=== PATIENT | male | born 1950 | race Caucasian/White ===

== ENCOUNTER 2022-05-20 22:37 | Inpatient (IN) | payer MEDICARE, BC ==
[2022-05-20] MEDS ORDERED: Amiodarone 150 MG/3 ML VIAL ONE (22:41)
[2022-05-20 23:47] LABS: Hemoglobin 13.4 g/dL (14.0-18.0); Mean Corpuscular HGB CONC 32.1 g/dL (32.0-36.0); Mean Corpuscular Hemoglobin 30.1 pg (27.0-31.0); Mean Corpuscular Volume 93.9 fl (78.0-98.0); RBC Distribution Width 11.2 % (11.5-14.5); Red Blood Cell (RBC) Count 4.43 mill/uL (4.70-6.10)
[2022-05-20 23:58] LABS: ALT (SGPT) Less than 7 U/L (8-55); AST (SGOT) 12 U/L (5-34); Albumin 3.6 g/dL (3.4-4.8); Alkaline Phosphatase 69 U/L (40-110); Anion Gap 12 mmol/L (10-20); BUN (Urea Nitrogen) 17 mg/dL (8.4-25.7); Bilirubin, Total 1.2 mg/dL (0.2-1.2); Calc. Creatinine Clearance 0 mL/min (70-130); Calcium 8.5 mg/dL (7.8-10.44); Carbon Dioxide 27 mmol/L (23-31); Chloride 103 mmol/L (98-107); Estimated GFR 92; Glucose 96 mg/dL (83-110); Magnesium 1.7 mg/dL (1.6-2.6); Potassium 3.7 mmol/L (3.5-5.1); Protein, Total 6.6 g/dL (5.8-8.1); Sodium 138 mmol/L (136-145)
[2022-05-21 00:24] LABS: #Eosinphils 0.1 thou/uL (0.0-0.7); #Lymphocytes 1.4 thou/uL (1.20-3.40); #Monocytes 0.7 thou/uL (0.11-0.59); #Neutrophils 4.9 thou/uL (1.40-6.50); %Basophils 0.4 % (0.0-1.0); %Eosinophils 1.5 % (0.0-10.0); %Lymphocytes 19.4 % (21.0-51.0); %Monocytes 9.5 % (0.0-10.0); %Neutrophils 69.2 % (42.0-75.0); Platelet Count 108 10x3/uL (130-400)
[2022-05-21 00:25] LABS: Platelet Morphology Comment Appears Decreased; RBC Morphology Normal
[2022-05-21] MEDS ORDERED: Fentanyl 100 MCG/2 ML VIAL ONE (01:08)
[2022-05-21] MEDS ORDERED: Aspirin Chewable 81 MG TAB ONE (01:39)
[2022-05-21] MEDS ORDERED: Magnesium 2 GM/50 ML BAG (IN WATER) ONE (01:40)
[2022-05-21 01:51] LABS: Phosphorus 2.6 mg/dL (2.3-4.7)
[2022-05-21] MEDS ORDERED: Acetaminophen 325 MG TAB PO PRN (02:28)
[2022-05-21] MEDS ORDERED: Ondansetron PF 4 MG/2 ML Vial IVP PRN (02:28)
[2022-05-21 04:00] LABS: SARS-CoV-2 NAA Rapid Test Not Detected (NotDetected)
[2022-05-21 07:04] LABS: #Eosinphils 0.1 thou/uL (0.0-0.7); #Lymphocytes 1.7 thou/uL (1.20-3.40); #Monocytes 0.7 thou/uL (0.11-0.59); #Neutrophils 4.9 thou/uL (1.40-6.50); %Basophils 0.3 % (0.0-1.0); %Eosinophils 1.4 % (0.0-10.0); %Lymphocytes 23.1 % (21.0-51.0); %Monocytes 9.5 % (0.0-10.0); %Neutrophils 65.8 % (42.0-75.0); Hemoglobin 13.7 g/dL (14.0-18.0); Mean Corpuscular HGB CONC 31.9 g/dL (32.0-36.0); Mean Corpuscular Hemoglobin 30.1 pg (27.0-31.0); Mean Corpuscular Volume 94.4 fl (78.0-98.0); Mean Platelet Volume 10.8 fL (7.4-10.4); Platelet Count 113 10x3/uL (130-400); RBC Distribution Width 11.3 % (11.5-14.5); Red Blood Cell (RBC) Count 4.56 mill/uL (4.70-6.10); White Blood Cell (WBC) Count 7.5 10x3/uL (4.8-10.8)
[2022-05-21 07:13] LABS: INR-International Normal Ratio 3.5; PTT 44.1 sec (22.9-36.1); Prothrombin Time 36.4 sec (12.0-14.7)
[2022-05-21 07:18] LABS: Anion Gap 12 mmol/L (10-20); BUN (Urea Nitrogen) 15 mg/dL (8.4-25.7); Calc. Creatinine Clearance 88 mL/min (70-130); Calcium 8.8 mg/dL (7.8-10.44); Carbon Dioxide 28 mmol/L (23-31); Chloride 101 mmol/L (98-107); Estimated GFR 92; Glucose 99 mg/dL (83-110); Potassium 3.6 mmol/L (3.5-5.1); Sodium 137 mmol/L (136-145)
[2022-05-21] MEDS: Amiodarone 450 MG, Admixture Fee 1 EACH in Dextrose 5% in Water 250 ML IVPB SCH ×2 (08:55→23:31)
[2022-05-21] MEDS ORDERED: Melatonin 3 MG TAB PO PRN (19:32)
[2022-05-21] MEDS: busPIRone HCl 10 MG TAB PO SCH (20:56)
[2022-05-21] MEDS: traZODone HCl 50 MG TAB PO SCH (20:57)
[2022-05-21] MEDS: Carbidopa/Levodopa 25-100 mg Tablet PO SCH (20:58)
[2022-05-21] MEDS: Gabapentin 300 MG CAP PO SCH (20:58)
[2022-05-21] MEDS: Cholecalciferol 1,000 UNITS (25 MCG) TAB PO SCH (20:59)
[2022-05-21] MEDS: Carvedilol 3.125 MG TAB PO SCH (20:59)
[2022-05-21] MEDS: Midodrine HCl 5 MG TAB PO SCH (21:00)
[2022-05-22 04:23] LABS: #Eosinphils 0.1 thou/uL (0.0-0.7); #Lymphocytes 2.2 thou/uL (1.20-3.40); #Monocytes 0.9 thou/uL (0.11-0.59); #Neutrophils 4.2 thou/uL (1.40-6.50); %Basophils 0.2 % (0.0-1.0); %Eosinophils 1.7 % (0.0-10.0); %Lymphocytes 29.9 % (21.0-51.0); %Monocytes 11.6 % (0.0-10.0); %Neutrophils 56.5 % (42.0-75.0); Hemoglobin 13.1 g/dL (14.0-18.0); Mean Corpuscular HGB CONC 32.5 g/dL (32.0-36.0); Mean Corpuscular Hemoglobin 30.6 pg (27.0-31.0); Mean Corpuscular Volume 94.1 fl (78.0-98.0); Mean Platelet Volume 11.2 fL (7.4-10.4); Platelet Count 96 10x3/uL (130-400); RBC Distribution Width 11.3 % (11.5-14.5); Red Blood Cell (RBC) Count 4.29 mill/uL (4.70-6.10); White Blood Cell (WBC) Count 7.4 10x3/uL (4.8-10.8)
[2022-05-22 04:26] LABS: INR-International Normal Ratio 3.7; PTT 48.4 sec (22.9-36.1); Prothrombin Time 38.2 sec (12.0-14.7)
[2022-05-22 04:35] LABS: Anion Gap 13 mmol/L (10-20); BUN (Urea Nitrogen) 15 mg/dL (8.4-25.7); Calc. Creatinine Clearance 90 mL/min (70-130); Calcium 8.8 mg/dL (7.8-10.44); Carbon Dioxide 26 mmol/L (23-31); Chloride 101 mmol/L (98-107); Estimated GFR 93; Glucose 85 mg/dL (83-110); Potassium 3.7 mmol/L (3.5-5.1); Sodium 136 mmol/L (136-145)
[2022-05-22] MEDS: Levothyroxine Sodium 100 MCG TAB PO SCH (05:47)
[2022-05-22] MEDS ORDERED: Amiodarone 200 MG TAB PO SCH (09:00)
[2022-05-22] MEDS: Digoxin 0.125 MG TAB PO SCH (10:21)
[2022-05-22] MEDS: Carbidopa/Levodopa 25-100 mg Tablet PO SCH ×3 (10:21→22:09)
[2022-05-22] MEDS: Amiodarone 200 MG TAB PO SCH ×2 (10:21→22:14)
[2022-05-22] MEDS: busPIRone HCl 10 MG TAB PO SCH ×2 (10:21→22:09)
[2022-05-22] MEDS: Carvedilol 3.125 MG TAB PO SCH ×2 (10:22→22:10)
[2022-05-22] MEDS: Midodrine HCl 5 MG TAB PO SCH ×3 (10:22→22:08)
[2022-05-22] MEDS: Cholecalciferol 1,000 UNITS (25 MCG) TAB PO SCH ×2 (10:22→22:08)
[2022-05-22] MEDS: Furosemide 20 MG TAB PO SCH ×2 (10:23→14:31)
[2022-05-22] MEDS ORDERED: Warfarin Sodium 2 MG TAB PO SCH (17:00)
[2022-05-22] MEDS: traZODone HCl 50 MG TAB PO SCH (22:08)
[2022-05-22] MEDS: Gabapentin 300 MG CAP PO SCH (22:10)
[2022-05-23] MEDS: Amiodarone 450 MG, Admixture Fee 1 EACH in Dextrose 5% in Water 250 ML IVPB SCH (01:58)
[2022-05-23 04:28] LABS: #Eosinphils 0.2 thou/uL (0.0-0.7); #Lymphocytes 2.1 thou/uL (1.20-3.40); #Monocytes 0.8 thou/uL (0.11-0.59); #Neutrophils 3.5 thou/uL (1.40-6.50); %Basophils 0.5 % (0.0-1.0); %Eosinophils 2.5 % (0.0-10.0); %Lymphocytes 31.8 % (21.0-51.0); %Monocytes 12.3 % (0.0-10.0); %Neutrophils 52.9 % (42.0-75.0); Hemoglobin 12.9 g/dL (14.0-18.0); Mean Corpuscular HGB CONC 32.6 g/dL (32.0-36.0); Mean Corpuscular Hemoglobin 30.8 pg (27.0-31.0); Mean Corpuscular Volume 94.6 fl (78.0-98.0); Mean Platelet Volume 10.8 fL (7.4-10.4); Platelet Count 98 10x3/uL (130-400); RBC Distribution Width 11.3 % (11.5-14.5); Red Blood Cell (RBC) Count 4.18 mill/uL (4.70-6.10); White Blood Cell (WBC) Count 6.6 10x3/uL (4.8-10.8)
[2022-05-23 04:31] LABS: INR-International Normal Ratio 3.4; PTT 53.9 sec (22.9-36.1)
[2022-05-23 04:33] LABS: Anion Gap 11 mmol/L (10-20); BUN (Urea Nitrogen) 16 mg/dL (8.4-25.7); Calc. Creatinine Clearance 96 mL/min (70-130); Calcium 8.6 mg/dL (7.8-10.44); Carbon Dioxide 27 mmol/L (23-31); Chloride 103 mmol/L (98-107); Estimated GFR 94; Glucose 85 mg/dL (83-110); Potassium 3.8 mmol/L (3.5-5.1); Sodium 137 mmol/L (136-145)
[2022-05-23] MEDS: Levothyroxine Sodium 100 MCG TAB PO SCH (05:42)
[2022-05-23] MEDS: Digoxin 0.125 MG TAB PO SCH (09:33)
[2022-05-23] MEDS: Carvedilol 3.125 MG TAB PO SCH ×2 (09:34→21:35)
[2022-05-23] MEDS: Midodrine HCl 5 MG TAB PO SCH ×3 (09:34→21:34)
[2022-05-23] MEDS: Amiodarone 200 MG TAB PO SCH ×2 (09:34→21:36)
[2022-05-23] MEDS: Carbidopa/Levodopa 25-100 mg Tablet PO SCH ×3 (09:34→21:34)
[2022-05-23] MEDS: Furosemide 20 MG TAB PO SCH ×2 (09:34→16:18)
[2022-05-23] MEDS: busPIRone HCl 10 MG TAB PO SCH ×2 (09:34→21:35)
[2022-05-23] MEDS: Cholecalciferol 1,000 UNITS (25 MCG) TAB PO SCH ×2 (09:35→21:35)
[2022-05-23] MEDS ORDERED: Warfarin Sodium 2 MG TAB PO SCH (17:00)
[2022-05-23] MEDS: Gabapentin 300 MG CAP PO SCH (21:34)
[2022-05-23] MEDS: traZODone HCl 50 MG TAB PO SCH (21:36)
[2022-05-24 04:39] LABS: INR-International Normal Ratio 2.8; Prothrombin Time 30.9 sec (12.0-14.7)
[2022-05-24] MEDS: Levothyroxine Sodium 100 MCG TAB PO SCH (06:29)
[2022-05-24] MEDS: Amiodarone 450 MG, Admixture Fee 1 EACH in Dextrose 5% in Water 250 ML IVPB SCH (06:29)
[2022-05-24] MEDS: Carvedilol 3.125 MG TAB PO SCH ×2 (09:34→20:46)
[2022-05-24] MEDS: Digoxin 0.125 MG TAB PO SCH (09:34)
[2022-05-24] MEDS: busPIRone HCl 10 MG TAB PO SCH ×2 (09:34→20:47)
[2022-05-24] MEDS: Cholecalciferol 1,000 UNITS (25 MCG) TAB PO SCH ×2 (09:34→20:47)
[2022-05-24] MEDS: Midodrine HCl 5 MG TAB PO SCH ×3 (09:34→20:47)
[2022-05-24] MEDS: Carbidopa/Levodopa 25-100 mg Tablet PO SCH ×3 (09:35→20:47)
[2022-05-24] MEDS: Amiodarone 200 MG TAB PO SCH ×2 (09:35→20:47)
[2022-05-24] MEDS: Furosemide 20 MG TAB PO SCH ×2 (09:35→14:42)
[2022-05-24] MEDS: traZODone HCl 50 MG TAB PO SCH (20:46)
[2022-05-24] MEDS: Gabapentin 300 MG CAP PO SCH (20:48)
[2022-05-25] MEDS: Levothyroxine Sodium 100 MCG TAB PO SCH (05:44)
[2022-05-25 08:20] LABS: INR-International Normal Ratio 2.1; Prothrombin Time 24.6 sec (12.0-14.7)
[2022-05-25] MEDS: busPIRone HCl 10 MG TAB PO SCH ×2 (09:55→21:56)
[2022-05-25] MEDS: Carvedilol 3.125 MG TAB PO SCH ×2 (09:56→21:57)
[2022-05-25] MEDS: Midodrine HCl 5 MG TAB PO SCH ×3 (09:56→21:58)
[2022-05-25] MEDS: Cholecalciferol 1,000 UNITS (25 MCG) TAB PO SCH ×2 (09:56→21:57)
[2022-05-25] MEDS: Amiodarone 200 MG TAB PO SCH ×2 (09:56→21:57)
[2022-05-25] MEDS: Digoxin 0.125 MG TAB PO SCH (09:56)
[2022-05-25] MEDS: Carbidopa/Levodopa 25-100 mg Tablet PO SCH ×3 (09:56→21:55)
[2022-05-25] MEDS: Furosemide 20 MG TAB PO SCH ×2 (09:58→15:33)
[2022-05-25] MEDS ORDERED: Warfarin Sodium 2 MG TAB PO SCH (17:00)
[2022-05-25] MEDS: traZODone HCl 50 MG TAB PO SCH (21:54)
[2022-05-25] MEDS: Gabapentin 300 MG CAP PO SCH (21:56)
[2022-05-26 04:17] LABS: INR-International Normal Ratio 2.1; PTT 38.2 sec (22.9-36.1); Prothrombin Time 24.9 sec (12.0-14.7)
[2022-05-26] MEDS: Levothyroxine Sodium 100 MCG TAB PO SCH (05:19)
[2022-05-26] MEDS: Carbidopa/Levodopa 25-100 mg Tablet PO SCH ×3 (09:34→22:22)
[2022-05-26] MEDS: Digoxin 0.125 MG TAB PO SCH (09:35)
[2022-05-26] MEDS: Amiodarone 200 MG TAB PO SCH ×2 (09:35→22:22)
[2022-05-26] MEDS: Cholecalciferol 1,000 UNITS (25 MCG) TAB PO SCH ×2 (09:36→22:22)
[2022-05-26] MEDS: Furosemide 20 MG TAB PO SCH ×2 (09:36→17:25)
[2022-05-26] MEDS: busPIRone HCl 10 MG TAB PO SCH ×2 (09:36→22:23)
[2022-05-26] MEDS: Carvedilol 3.125 MG TAB PO SCH ×2 (09:36→22:23)
[2022-05-26] MEDS: Midodrine HCl 5 MG TAB PO SCH ×3 (09:36→22:22)
[2022-05-26] MEDS: Gabapentin 300 MG CAP PO SCH (22:21)
[2022-05-26] MEDS: traZODone HCl 50 MG TAB PO SCH (22:22)
[2022-05-27 04:28] LABS: PTT 35.6 sec (22.9-36.1)
[2022-05-27] MEDS: Levothyroxine Sodium 100 MCG TAB PO SCH (06:40)
[2022-05-27] MEDS: busPIRone HCl 10 MG TAB PO SCH ×2 (09:43→21:55)
[2022-05-27] MEDS: Carbidopa/Levodopa 25-100 mg Tablet PO SCH ×3 (09:44→21:56)
[2022-05-27] MEDS: Amiodarone 200 MG TAB PO SCH ×2 (09:44→21:55)
[2022-05-27] MEDS: Digoxin 0.125 MG TAB PO SCH (09:45)
[2022-05-27] MEDS: Midodrine HCl 5 MG TAB PO SCH ×3 (09:45→21:58)
[2022-05-27] MEDS: Cholecalciferol 1,000 UNITS (25 MCG) TAB PO SCH ×2 (09:46→21:57)
[2022-05-27] MEDS: Carvedilol 3.125 MG TAB PO SCH ×2 (09:46→21:59)
[2022-05-27] MEDS: Furosemide 20 MG TAB PO SCH ×2 (09:46→14:35)
[2022-05-27] MEDS: Gabapentin 300 MG CAP PO SCH (21:57)
[2022-05-27] MEDS: traZODone HCl 50 MG TAB PO SCH (21:59)
[2022-05-28 03:59] LABS: #Eosinphils 0.1 thou/uL (0.0-0.7); #Lymphocytes 2.5 thou/uL (1.20-3.40); #Monocytes 0.8 thou/uL (0.11-0.59); %Basophils 0.5 % (0.0-1.0); %Monocytes 10.9 % (0.0-10.0); %Neutrophils 53.7 % (42.0-75.0); Hemoglobin 13.7 g/dL (14.0-18.0); Mean Corpuscular HGB CONC 31.9 g/dL (32.0-36.0); Mean Corpuscular Hemoglobin 30.3 pg (27.0-31.0); Mean Corpuscular Volume 94.9 fl (78.0-98.0); Mean Platelet Volume 11.4 fL (7.4-10.4); Platelet Count 106 10x3/uL (130-400); RBC Distribution Width 11.3 % (11.5-14.5); Red Blood Cell (RBC) Count 4.51 mill/uL (4.70-6.10); White Blood Cell (WBC) Count 7.5 10x3/uL (4.8-10.8)
[2022-05-28 04:09] LABS: INR-International Normal Ratio 2.5; PTT 85.8 sec (22.9-36.1); Prothrombin Time 28.2 sec (12.0-14.7)
[2022-05-28] MEDS: Levothyroxine Sodium 100 MCG TAB PO SCH (06:48)
[2022-05-28] MEDS: Carbidopa/Levodopa 25-100 mg Tablet PO SCH ×3 (08:57→21:06)
[2022-05-28] MEDS: Digoxin 0.125 MG TAB PO SCH (08:57)
[2022-05-28] MEDS: Midodrine HCl 5 MG TAB PO SCH ×3 (08:57→21:05)
[2022-05-28] MEDS: Amiodarone 200 MG TAB PO SCH ×2 (08:58→21:05)
[2022-05-28] MEDS: busPIRone HCl 10 MG TAB PO SCH ×2 (08:58→21:04)
[2022-05-28] MEDS: Carvedilol 3.125 MG TAB PO SCH ×2 (08:59→21:07)
[2022-05-28] MEDS: Cholecalciferol 1,000 UNITS (25 MCG) TAB PO SCH ×2 (08:59→21:02)
[2022-05-28] MEDS: Loratadine 10 MG TAB PO SCH (08:59)
[2022-05-28] MEDS: Furosemide 20 MG TAB PO SCH ×2 (08:59→16:04)
[2022-05-28] MEDS ORDERED: Phytonadione 5 MG TAB PO SCH (19:30)
[2022-05-28] MEDS: Gabapentin 300 MG CAP PO SCH (21:03)
[2022-05-28] MEDS: traZODone HCl 50 MG TAB PO SCH (21:06)
[2022-05-29 05:09] LABS: INR-International Normal Ratio 1.6; Prothrombin Time 19.6 sec (12.0-14.7)
[2022-05-29 05:10] LABS: PTT 43.7 sec (22.9-36.1)
[2022-05-29] MEDS: Levothyroxine Sodium 100 MCG TAB PO SCH (06:21)
[2022-05-29] MEDS: Amiodarone 200 MG TAB PO SCH ×2 (11:17→21:32)
[2022-05-29] MEDS: busPIRone HCl 10 MG TAB PO SCH ×2 (11:18→21:35)
[2022-05-29] MEDS: Carbidopa/Levodopa 25-100 mg Tablet PO SCH ×3 (11:19→21:34)
[2022-05-29] MEDS: Cholecalciferol 1,000 UNITS (25 MCG) TAB PO SCH ×2 (11:19→21:34)
[2022-05-29] MEDS: Midodrine HCl 5 MG TAB PO SCH ×3 (11:20→21:34)
[2022-05-29] MEDS: Furosemide 20 MG TAB PO SCH ×2 (11:21→15:02)
[2022-05-29] MEDS: Loratadine 10 MG TAB PO SCH (11:22)
[2022-05-29] MEDS: Digoxin 0.125 MG TAB PO SCH (11:22)
[2022-05-29] MEDS: Carvedilol 3.125 MG TAB PO SCH ×2 (12:36→21:37)
[2022-05-29] MEDS ORDERED: busPIRone HCl 10 MG TAB PO SCH (15:45)
[2022-05-29] MEDS: traZODone HCl 50 MG TAB PO SCH (21:33)
[2022-05-29] MEDS: Gabapentin 300 MG CAP PO SCH (21:33)
[2022-05-30 05:02] LABS: #Eosinphils 0.2 thou/uL (0.0-0.7); #Lymphocytes 2.7 thou/uL (1.20-3.40); #Monocytes 0.7 thou/uL (0.11-0.59); #Neutrophils 3.6 thou/uL (1.40-6.50); %Basophils 0.6 % (0.0-1.0); %Eosinophils 2.3 % (0.0-10.0); %Lymphocytes 37.3 % (21.0-51.0); %Monocytes 9.9 % (0.0-10.0); %Neutrophils 49.9 % (42.0-75.0); Hemoglobin 13.7 g/dL (14.0-18.0); Mean Corpuscular HGB CONC 32.5 g/dL (32.0-36.0); Mean Corpuscular Hemoglobin 30.4 pg (27.0-31.0); Mean Corpuscular Volume 93.8 fl (78.0-98.0); Mean Platelet Volume 11.7 fL (7.4-10.4); Platelet Count 102 10x3/uL (130-400); RBC Distribution Width 11.3 % (11.5-14.5); White Blood Cell (WBC) Count 7.1 10x3/uL (4.8-10.8)
[2022-05-30 05:13] LABS: INR-International Normal Ratio 1.3; PTT 33.7 sec (22.9-36.1); Prothrombin Time 16.6 sec (12.0-14.7)
[2022-05-30 05:20] LABS: Anion Gap 13 mmol/L (10-20); BUN (Urea Nitrogen) 40 mg/dL (8.4-25.7); Calc. Creatinine Clearance 83 mL/min (70-130); Calcium 9.4 mg/dL (7.8-10.44); Carbon Dioxide 30 mmol/L (23-31); Chloride 98 mmol/L (98-107); Estimated GFR 90; Glucose 90 mg/dL (83-110); Potassium 3.7 mmol/L (3.5-5.1); Sodium 137 mmol/L (136-145)
[2022-05-30] MEDS: Levothyroxine Sodium 100 MCG TAB PO SCH (06:46)
[2022-05-30] MEDS: Carvedilol 3.125 MG TAB PO SCH ×2 (09:57→21:04)
[2022-05-30] MEDS: Digoxin 0.125 MG TAB PO SCH (10:31)
[2022-05-30] MEDS: Cholecalciferol 1,000 UNITS (25 MCG) TAB PO SCH ×2 (10:32→21:04)
[2022-05-30] MEDS: Amiodarone 200 MG TAB PO SCH ×2 (10:32→21:04)
[2022-05-30] MEDS: busPIRone HCl 10 MG TAB PO SCH ×2 (10:33→17:07)
[2022-05-30] MEDS: Furosemide 20 MG TAB PO SCH ×2 (10:35→14:07)
[2022-05-30] MEDS: Loratadine 10 MG TAB PO SCH (10:35)
[2022-05-30] MEDS: Carbidopa/Levodopa 25-100 mg Tablet PO SCH ×3 (10:38→21:03)
[2022-05-30] MEDS: Midodrine HCl 5 MG TAB PO SCH ×4 (10:39→21:05)
[2022-05-30] MEDS ORDERED: Communication Order-Pharmacy FS SCH (19:00)
[2022-05-30] MEDS: Gabapentin 300 MG CAP PO SCH (21:04)
[2022-05-30] MEDS: traZODone HCl 50 MG TAB PO SCH (21:04)
[2022-05-31] MEDS ORDERED: Sodium Chloride 0.9% 250 ML IV SCH ×2 (00:01→09:15)
[2022-05-31 04:23] LABS: #Eosinphils 0.1 thou/uL (0.0-0.7); #Lymphocytes 2.4 thou/uL (1.20-3.40); #Monocytes 0.7 thou/uL (0.11-0.59); #Neutrophils 3.5 thou/uL (1.40-6.50); %Basophils 0.1 % (0.0-1.0); %Eosinophils 1.9 % (0.0-10.0); %Monocytes 10.6 % (0.0-10.0); %Neutrophils 51.4 % (42.0-75.0); Hemoglobin 12.9 g/dL (14.0-18.0); Mean Corpuscular HGB CONC 32.6 g/dL (32.0-36.0); Mean Corpuscular Hemoglobin 30.4 pg (27.0-31.0); Mean Corpuscular Volume 93.3 fl (78.0-98.0); Mean Platelet Volume 10.8 fL (7.4-10.4); Platelet Count 102 10x3/uL (130-400); RBC Distribution Width 11.3 % (11.5-14.5); Red Blood Cell (RBC) Count 4.24 mill/uL (4.70-6.10); White Blood Cell (WBC) Count 6.7 10x3/uL (4.8-10.8)
[2022-05-31 04:29] LABS: Anion Gap 12 mmol/L (10-20); BUN (Urea Nitrogen) 48 mg/dL (8.4-25.7); Calc. Creatinine Clearance 74 mL/min (70-130); Calcium 9.2 mg/dL (7.8-10.44); Carbon Dioxide 29 mmol/L (23-31); Chloride 98 mmol/L (98-107); Estimated GFR 77; Glucose 99 mg/dL (83-110); Potassium 3.9 mmol/L (3.5-5.1); Sodium 135 mmol/L (136-145)
[2022-05-31] MEDS: Levothyroxine Sodium 100 MCG TAB PO SCH (04:54)
[2022-05-31] MEDS: Carbidopa/Levodopa 25-100 mg Tablet PO SCH ×3 (04:54→20:06)
[2022-05-31] MEDS: Cholecalciferol 1,000 UNITS (25 MCG) TAB PO SCH ×2 (04:55→20:05)
[2022-05-31] MEDS: Midodrine HCl 5 MG TAB PO SCH ×3 (04:55→20:06)
[2022-05-31] MEDS: Furosemide 20 MG TAB PO SCH ×2 (04:55→14:47)
[2022-05-31] MEDS: busPIRone HCl 10 MG TAB PO SCH ×2 (04:55→17:29)
[2022-05-31] MEDS: Amiodarone 200 MG TAB PO SCH ×2 (04:55→20:06)
[2022-05-31] MEDS: Carvedilol 3.125 MG TAB PO SCH ×2 (04:55→20:06)
[2022-05-31] MEDS: Loratadine 10 MG TAB PO SCH (04:56)
[2022-05-31] MEDS ORDERED: Lidocaine 1% (PF) 30 ML VIAL ONE (06:29)
[2022-05-31] MEDS ORDERED: Heparin 10,000 UNITS/ 10 ML VIAL ONE (06:30)
[2022-05-31] MEDS ORDERED: Midazolam HCl 2 mg/2 ml Vial ONE (08:34)
[2022-05-31] MEDS ORDERED: FENTANYL 50 MCG/ML 1 ML VIAL ONE (08:35)
[2022-05-31] MEDS ORDERED: Verapamil 5 MG/2 ML VIAL ONE (08:48)
[2022-05-31] MEDS ORDERED: Nitroglycerin 100MG/250ML BOT 250 ML ONE (08:49)
[2022-05-31] MEDS ORDERED: Iopamidol 370 76% 100 ML VIAL ONE (08:55)
[2022-05-31] MEDS ORDERED: PHENYLEPHRINE-NS 100 MCG/ML 10 ML SYRINGE ONE (08:58)
[2022-05-31] MEDS ORDERED: Acetaminophen/Codeine 30-300mg Tablet PO PRN (09:07)
[2022-05-31] MEDS ORDERED: Sodium Chloride 0.9% 200 ML IV PRN (09:07)
[2022-05-31 10:19] VITALS: BMI 25.0
[2022-05-31] MEDS ORDERED: Warfarin Sodium 2 MG TAB PO SCH (17:00)
[2022-05-31] MEDS: traZODone HCl 50 MG TAB PO SCH (20:05)
[2022-05-31] MEDS: Gabapentin 300 MG CAP PO SCH (20:06)
[2022-06-01 04:54] LABS: INR-International Normal Ratio 1.2; Prothrombin Time 15.8 sec (12.0-14.7)
[2022-06-01] MEDS: Levothyroxine Sodium 100 MCG TAB PO SCH (05:27)
[2022-06-01] MEDS: busPIRone HCl 10 MG TAB PO SCH ×2 (11:17→17:55)
[2022-06-01] MEDS: Carbidopa/Levodopa 25-100 mg Tablet PO SCH ×3 (11:17→20:22)
[2022-06-01] MEDS: Amiodarone 200 MG TAB PO SCH ×2 (11:18→20:23)
[2022-06-01] MEDS: Carvedilol 3.125 MG TAB PO SCH (11:18)
[2022-06-01] MEDS: Furosemide 20 MG TAB PO SCH ×2 (11:18→17:54)
[2022-06-01] MEDS: Cholecalciferol 1,000 UNITS (25 MCG) TAB PO SCH ×2 (11:18→20:23)
[2022-06-01] MEDS: Midodrine HCl 5 MG TAB PO SCH ×3 (11:18→20:22)
[2022-06-01] MEDS: Loratadine 10 MG TAB PO SCH (11:19)
[2022-06-01] MEDS ORDERED: Warfarin Sodium 2 MG TAB PO SCH (17:00)
[2022-06-01 20:05] VITALS: BP 81/51; TEMP 98.1
[2022-06-01] MEDS: Gabapentin 300 MG CAP PO SCH (20:22)
[2022-06-01] MEDS: traZODone HCl 50 MG TAB PO SCH (21:38)
[2022-06-03] MEDS ORDERED: Amiodarone 200 MG TAB PO SCH (09:00)
== END 2022-06-01 22:08 | disposition short-term general hospital (02) | DRG 287 ==
LOC: ERS 22:37 → IMCU/EMU 05-21 02:28 → 2NO 05-25 16:24
PROVIDERS: ADMIT Internal Medicine; ATTEND Hospitalist
PROC: 4A023N7 Measurement of Cardiac Sampling and Pressure, Left Heart, Percutaneous Approach (ICD-10-PCS; principal; 2022-05-31)
PROC: B2111ZZ Fluoroscopy of Multiple Coronary Arteries using Low Osmolar Contrast (ICD-10-PCS; 2022-05-31)
PROC: B2151ZZ Fluoroscopy of Left Heart using Low Osmolar Contrast (ICD-10-PCS; 2022-05-31)
DX: I47.20 Ventricular tachycardia, unspecified (principal); I50.22 Chronic systolic (congestive) heart failure; I42.8 Other cardiomyopathies; C85.90 Non-Hodgkin lymphoma, unspecified, unspecified site; Z51.5 Encounter for palliative care; I48.11 Longstanding persistent atrial fibrillation; M19.90 Unspecified osteoarthritis, unspecified site; G20 Parkinson's disease; I95.9 Hypotension, unspecified; D64.9 Anemia, unspecified; E03.9 Hypothyroidism, unspecified; K21.9 Gastro-esophageal reflux disease without esophagitis; D69.6 Thrombocytopenia, unspecified; Z95.810 Presence of automatic (implantable) cardiac defibrillator; Z79.01 Long term (current) use of anticoagulants; Z79.899 Other long term (current) drug therapy; Z79.890 Hormone replacement therapy; Z79.02 Long term (current) use of antithrombotics/antiplatelets
CPT/HCPCS: 36415; 71045; 80048; 80053; 82553; 83735; 83880; 84100; 84443; 84484; 85025; 85610; 85730; 87811; 93005; 93010; 93306; 93454; 96365; 96366; 96375; 96376; 97139; C1769; C1894; J0282; J1644; J1650; J2001; J2250; J3010; J3475; J7030; J7070; U0002

== ENCOUNTER 2022-10-11 03:33 | Inpatient (IN) | payer MEDICARE, BC ==
[2022-10-11] MEDS ORDERED: Furosemide 40 MG/4 ML VIAL ONE (04:20)
[2022-10-11] MEDS ORDERED: Ondansetron PF 4 MG/2 ML Vial IVP PRN (04:59)
[2022-10-11 05:08] LABS: #Eosinphils 0.1 thou/uL (0.0-0.7); #Monocytes 0.4 thou/uL (0.11-0.59); #Neutrophils 4.9 thou/uL (1.40-6.50); %Basophils 0.2 % (0.0-1.0); %Eosinophils 0.8 % (0.0-10.0); %Lymphocytes 11.9 % (21.0-51.0); %Monocytes 5.9 % (0.0-10.0); %Neutrophils 80.4 % (42.0-75.0); Hemoglobin 10.2 g/dL (14.0-18.0); Mean Corpuscular HGB CONC 29.6 g/dL (32.0-36.0); Mean Corpuscular Hemoglobin 21.9 pg (27.0-31.0); Platelet Count 143 10x3/uL (130-400); RBC Distribution Width 18.7 % (11.5-14.5); Red Blood Cell (RBC) Count 4.66 mill/uL (4.70-6.10); White Blood Cell (WBC) Count 6.1 10x3/uL (4.8-10.8)
[2022-10-11 05:27] LABS: ALT (SGPT) Less than 7 U/L (8-55); AST (SGOT) 29 U/L (5-34); Albumin 3.6 g/dL (3.4-4.8); Alkaline Phosphatase 93 U/L (40-110); Anion Gap 19 mmol/L (10-20); BUN (Urea Nitrogen) 44 mg/dL (8.4-25.7); Bilirubin, Total 3.6 mg/dL (0.2-1.2); Calc. Creatinine Clearance 0 mL/min (70-130); Carbon Dioxide 19 mmol/L (23-31); Chloride 99 mmol/L (98-107); Estimated GFR 49; Globulin 3.7 g/dL (2.4-3.5); Glucose 101 mg/dL (83-110); Iron 17 ug/dL (65-175); Iron 18 ug/dL (65-175); Iron Binding Capacity, Total 340 mcg/dL (261-462); Iron Binding Capacity, Total 358 mcg/dL (261-462); Potassium 4.4 mmol/L (3.5-5.1); Protein, Total 7.3 g/dL (5.8-8.1); Sodium 133 mmol/L (136-145)
[2022-10-11 05:33] LABS: PTT 48.2 sec (22.9-36.1)
[2022-10-11 05:33] LABS: CKMB 2.1 ng/mL (0-6.6)
[2022-10-11 05:34] LABS: Lactic Acid 1.9 mmol/L (0.5-2.2)
[2022-10-11 08:26] LABS: Troponin I 0.043 ng/mL (< 0.028)
[2022-10-11 11:50] LABS: Troponin I 0.043 ng/mL (< 0.028)
[2022-10-11] MEDS: Furosemide 20 MG/2 ML VIAL SLOW IVP SCH (14:42)
[2022-10-11] MEDS ORDERED: Furosemide 20 MG/2 ML VIAL ONE (14:43)
[2022-10-11] MEDS ORDERED: clonazePAM 0.5 MG TAB PO PRN (16:37)
[2022-10-11] MEDS ORDERED: Artificial Tear Sol 15 ML BOT EA EYE PRN (16:37)
[2022-10-11] MEDS: Scopolamine 1.5 mg/72 hour Patch TOP SCH (17:14)
[2022-10-11] MEDS: Melatonin 3 MG TAB PO PRN (21:50)
[2022-10-11] MEDS: busPIRone HCl 10 MG TAB PO SCH (21:50)
[2022-10-11] MEDS: Gabapentin 300 MG CAP PO SCH (21:51)
[2022-10-11] MEDS: Carbidopa/Levodopa 25-100 mg Tablet PO SCH (21:51)
[2022-10-11] MEDS: Midodrine HCl 5 MG TAB PO SCH (21:51)
[2022-10-11] MEDS: traZODone HCl 50 MG TAB PO SCH (21:51)
[2022-10-12] MEDS: Furosemide 20 MG/2 ML VIAL SLOW IVP SCH ×2 (05:40→16:11)
[2022-10-12] MEDS: Levothyroxine Sodium 100 MCG TAB PO SCH (05:41)
[2022-10-12 05:48] LABS: #Monocytes 0.7 thou/uL (0.11-0.59); #Neutrophils 4.6 thou/uL (1.40-6.50); %Eosinophils 0.3 % (0.0-10.0); %Lymphocytes 14.1 % (21.0-51.0); %Monocytes 11.1 % (0.0-10.0); Hemoglobin 9.3 g/dL (14.0-18.0); Mean Corpuscular HGB CONC 29.7 g/dL (32.0-36.0); Mean Corpuscular Hemoglobin 21.7 pg (27.0-31.0); Platelet Count 127 10x3/uL (130-400); Red Blood Cell (RBC) Count 4.29 mill/uL (4.70-6.10); White Blood Cell (WBC) Count 6.2 10x3/uL (4.8-10.8)
[2022-10-12 06:09] LABS: Anion Gap 17 mmol/L (10-20); BUN (Urea Nitrogen) 48 mg/dL (8.4-25.7); Calc. Creatinine Clearance 54 mL/min (70-130); Calcium 8.7 mg/dL (7.8-10.44); Carbon Dioxide 21 mmol/L (23-31); Chloride 98 mmol/L (98-107); Estimated GFR 48; Glucose 105 mg/dL (83-110); Potassium 4.5 mmol/L (3.5-5.1); Sodium 131 mmol/L (136-145)
[2022-10-12 06:13] LABS: INR-International Normal Ratio 4.1; PTT 49.2 sec (22.9-36.1); Prothrombin Time 41.4 sec (12.0-14.7)
[2022-10-12] MEDS: Amiodarone 200 MG TAB PO SCH (09:22)
[2022-10-12] MEDS: Midodrine HCl 5 MG TAB PO SCH ×3 (09:22→20:34)
[2022-10-12] MEDS: busPIRone HCl 10 MG TAB PO SCH ×3 (09:22→20:33)
[2022-10-12] MEDS: Carbidopa/Levodopa 25-100 mg Tablet PO SCH ×3 (09:22→20:33)
[2022-10-12] MEDS: Gabapentin 300 MG CAP PO SCH (20:33)
[2022-10-12] MEDS: traZODone HCl 50 MG TAB PO SCH (20:34)
[2022-10-13 04:45] LABS: Hemoglobin 9.3 g/dL (14.0-18.0); Mean Corpuscular HGB CONC 29.4 g/dL (32.0-36.0); Mean Corpuscular Hemoglobin 21.8 pg (27.0-31.0); RBC Distribution Width 18.9 % (11.5-14.5); Red Blood Cell (RBC) Count 4.27 mill/uL (4.70-6.10)
[2022-10-13 04:48] LABS: Platelet Count 115 10x3/uL (130-400)
[2022-10-13 04:49] LABS: Delete Auto Diff?? YES; Manual Diff?? YES
[2022-10-13 04:53] LABS: INR-International Normal Ratio 3.3; Prothrombin Time 34.9 sec (12.0-14.7)
[2022-10-13 04:54] LABS: PTT 45.5 sec (22.9-36.1)
[2022-10-13 05:10] LABS: Anion Gap 17 mmol/L (10-20); Anisocytosis MARKED = >30 cells HPF (0-5); BUN (Urea Nitrogen) 49 mg/dL (8.4-25.7); Band 8 % (5-11); Bilirubin, Total 3.3 mg/dL (0.2-1.2); Calc. Creatinine Clearance 50 mL/min (70-130); Calcium 8.8 mg/dL (7.8-10.44); Carbon Dioxide 21 mmol/L (23-31); CellaVision Operator ID LAB.CLH1; Chloride 101 mmol/L (98-107); Eosinophils 2 % (0-10); Estimated GFR 44; Glucose 79 mg/dL (83-110); Hypochromia SLIGHT = 6-15 cells HPF (0-5); Large Platelets 3.9 % (0-5); Lymphocytes 7 % (21-51); Metamyelocyte 1 % (0-0); Microcytosis SLIGHT = 6-15 cells HPF (0-5); Monocytes 5 % (0-10); Neutrophil 77 % (42-75); Nucleated RBC (Manual Ct) 4 % (0); Platelet Adequacy Comment Platelets Decreased; Polychromasia MODERATE = 3-4 cells HPF (0-2); Sodium 135 mmol/L (136-145); Target Cells MODERATE= 6-15 cells HPF (0-1); Total Cell Count 102
[2022-10-13] MEDS: Levothyroxine Sodium 100 MCG TAB PO SCH (06:12)
[2022-10-13] MEDS: Furosemide 20 MG/2 ML VIAL SLOW IVP SCH ×2 (06:13→15:58)
[2022-10-13] MEDS: Amiodarone 200 MG TAB PO SCH (08:17)
[2022-10-13] MEDS: busPIRone HCl 10 MG TAB PO SCH ×3 (08:18→21:02)
[2022-10-13] MEDS: Midodrine HCl 5 MG TAB PO SCH ×3 (08:18→21:02)
[2022-10-13] MEDS: Carbidopa/Levodopa 25-100 mg Tablet PO SCH ×3 (08:18→21:02)
[2022-10-13] MEDS: Warfarin Sodium 2 MG TAB PO SCH (17:08)
[2022-10-13] MEDS: Gabapentin 300 MG CAP PO SCH (20:54)
[2022-10-13] MEDS: Acetaminophen 325 MG TAB PO PRN (20:54)
[2022-10-13] MEDS: traZODone HCl 50 MG TAB PO SCH (20:54)
[2022-10-13] MEDS: Melatonin 3 MG TAB PO PRN (21:02)
[2022-10-14] MEDS ORDERED: Midodrine HCl 5 MG TAB PO SCH (00:30)
[2022-10-14 05:58] LABS: Hemoglobin 9.3 g/dL (14.0-18.0); Mean Corpuscular Hemoglobin 21.8 pg (27.0-31.0); Mean Corpuscular Volume 72.8 fl (78.0-98.0); Platelet Count 123 10x3/uL (130-400); RBC Distribution Width 19.1 % (11.5-14.5); Red Blood Cell (RBC) Count 4.26 mill/uL (4.70-6.10); White Blood Cell (WBC) Count 6.8 10x3/uL (4.8-10.8)
[2022-10-14] MEDS: Furosemide 20 MG/2 ML VIAL SLOW IVP SCH ×2 (06:10→15:22)
[2022-10-14] MEDS: Levothyroxine Sodium 100 MCG TAB PO SCH (06:10)
[2022-10-14 06:26] LABS: Anion Gap 14 mmol/L (10-20); BUN (Urea Nitrogen) 44 mg/dL (8.4-25.7); Calc. Creatinine Clearance 56 mL/min (70-130); Calcium 8.6 mg/dL (7.8-10.44); Carbon Dioxide 25 mmol/L (23-31); Chloride 103 mmol/L (98-107); Estimated GFR 50; Glucose 106 mg/dL (83-110); Potassium 3.5 mmol/L (3.5-5.1); Sodium 138 mmol/L (136-145)
[2022-10-14 06:39] LABS: INR-International Normal Ratio 2.9; PTT 45.2 sec (22.9-36.1); Prothrombin Time 31.8 sec (12.0-14.7)
[2022-10-14 06:58] LABS: Manual Diff?? YES
[2022-10-14 06:59] LABS: Delete Auto Diff?? YES
[2022-10-14 07:42] LABS: Band 1 % (5-11); CellaVision Operator ID LAB.GE; Hypochromia MODERATE=16-30 cells HPF (0-5); Lymphocytes 11 % (21-51); Microcytosis MODERATE=15-30 cells HPF (0-5); Monocytes 4 % (0-10); Neutrophil 81 % (42-75); Nucleated RBC (Manual Ct) 2 % (0); Platelet Adequacy Comment Platelets Decreased; Polychromasia MODERATE = 3-4 cells HPF (0-2); Reactive Lymphocytes 1 % (0-10); Total Cell Count 101; Vacuoles SLIGHT
[2022-10-14] MEDS: Midodrine HCl 5 MG TAB PO SCH ×3 (10:30→20:36)
[2022-10-14] MEDS: Carbidopa/Levodopa 25-100 mg Tablet PO SCH ×3 (10:30→20:35)
[2022-10-14] MEDS: Amiodarone 200 MG TAB PO SCH (10:30)
[2022-10-14] MEDS: busPIRone HCl 10 MG TAB PO SCH ×3 (10:30→20:34)
[2022-10-14] MEDS: Acetaminophen 325 MG TAB PO PRN ×2 (11:17→20:34)
[2022-10-14] MEDS ORDERED: Warfarin Sodium 3 MG TAB PO SCH (17:00)
[2022-10-14] MEDS: Scopolamine 1.5 mg/72 hour Patch TOP SCH (17:42)
[2022-10-14] MEDS: Gabapentin 300 MG CAP PO SCH (20:35)
[2022-10-14] MEDS: traZODone HCl 50 MG TAB PO SCH (20:36)
[2022-10-15] MEDS: Acetaminophen 325 MG TAB PO PRN (01:58)
[2022-10-15 04:43] LABS: INR-International Normal Ratio 2.8
[2022-10-15 04:50] LABS: Anion Gap 12 mmol/L (10-20); BUN (Urea Nitrogen) 39 mg/dL (8.4-25.7); Calc. Creatinine Clearance 67 mL/min (70-130); Calcium 8.4 mg/dL (7.8-10.44); Carbon Dioxide 27 mmol/L (23-31); Chloride 103 mmol/L (98-107); Estimated GFR 64; Glucose 98 mg/dL (83-110); Potassium 3.3 mmol/L (3.5-5.1); Sodium 139 mmol/L (136-145)
[2022-10-15] MEDS: Levothyroxine Sodium 100 MCG TAB PO SCH (05:55)
[2022-10-15] MEDS: Furosemide 20 MG/2 ML VIAL SLOW IVP SCH ×2 (05:55→12:57)
[2022-10-15] MEDS: busPIRone HCl 10 MG TAB PO SCH ×3 (08:42→20:33)
[2022-10-15] MEDS: Carbidopa/Levodopa 25-100 mg Tablet PO SCH ×3 (08:42→20:33)
[2022-10-15] MEDS: Midodrine HCl 5 MG TAB PO SCH ×3 (08:42→20:34)
[2022-10-15] MEDS: Amiodarone 200 MG TAB PO SCH (08:42)
[2022-10-15] MEDS: Potassium Chloride 20 MEQ in Premix Bag 1 BAG IVPB SCH ×2 (09:05→12:57)
[2022-10-15] MEDS: Warfarin Sodium 2 MG TAB PO SCH (17:44)
[2022-10-15] MEDS: Gabapentin 300 MG CAP PO SCH (20:33)
[2022-10-15] MEDS: traZODone HCl 50 MG TAB PO SCH (20:34)
[2022-10-16] MEDS: Acetaminophen 325 MG TAB PO PRN (00:21)
[2022-10-16] MEDS: Melatonin 3 MG TAB PO PRN (00:21)
[2022-10-16 04:55] LABS: Prothrombin Time 32.2 sec (12.0-14.7)
[2022-10-16 05:11] LABS: Anion Gap 16 mmol/L (10-20); BUN (Urea Nitrogen) 38 mg/dL (8.4-25.7); Calc. Creatinine Clearance 52 mL/min (70-130); Calcium 8.5 mg/dL (7.8-10.44); Carbon Dioxide 25 mmol/L (23-31); Chloride 105 mmol/L (98-107); Estimated GFR 47; Glucose 111 mg/dL (83-110); Potassium 4.4 mmol/L (3.5-5.1); Sodium 142 mmol/L (136-145)
[2022-10-16] MEDS: Furosemide 20 MG/2 ML VIAL SLOW IVP SCH ×2 (05:55→15:13)
[2022-10-16] MEDS: Levothyroxine Sodium 100 MCG TAB PO SCH (08:43)
[2022-10-16] MEDS: Carbidopa/Levodopa 25-100 mg Tablet PO SCH ×3 (08:44→21:09)
[2022-10-16] MEDS: Midodrine HCl 5 MG TAB PO SCH ×3 (08:44→21:09)
[2022-10-16] MEDS: Amiodarone 200 MG TAB PO SCH (08:44)
[2022-10-16] MEDS: busPIRone HCl 10 MG TAB PO SCH ×3 (08:44→21:09)
[2022-10-16] MEDS: Warfarin Sodium 2 MG TAB PO SCH (18:47)
[2022-10-16] MEDS: Gabapentin 300 MG CAP PO SCH (21:09)
[2022-10-16] MEDS: traZODone HCl 50 MG TAB PO SCH (21:09)
[2022-10-17 04:32] LABS: Hemoglobin 10.2 g/dL (14.0-18.0); Platelet Count 119 10x3/uL (130-400)
[2022-10-17 04:45] LABS: Prothrombin Time 32.1 sec (12.0-14.7)
[2022-10-17 05:05] LABS: Anion Gap 20 mmol/L (10-20); BUN (Urea Nitrogen) 45 mg/dL (8.4-25.7); Calc. Creatinine Clearance 49 mL/min (70-130); Calcium 8.9 mg/dL (7.8-10.44); Carbon Dioxide 22 mmol/L (23-31); Chloride 104 mmol/L (98-107); Estimated GFR 40; Glucose 108 mg/dL (83-110); Potassium 4.9 mmol/L (3.5-5.1); Sodium 141 mmol/L (136-145)
[2022-10-17] MEDS: Furosemide 20 MG/2 ML VIAL SLOW IVP SCH ×2 (05:24→14:43)
[2022-10-17] MEDS: Levothyroxine Sodium 100 MCG TAB PO SCH (09:33)
[2022-10-17] MEDS: busPIRone HCl 10 MG TAB PO SCH ×3 (10:58→21:13)
[2022-10-17] MEDS: Midodrine HCl 5 MG TAB PO SCH ×3 (10:58→21:14)
[2022-10-17] MEDS: Carbidopa/Levodopa 25-100 mg Tablet PO SCH ×3 (10:58→21:13)
[2022-10-17] MEDS: Amiodarone 200 MG TAB PO SCH (10:58)
[2022-10-17] MEDS ORDERED: Warfarin Sodium 2 MG TAB PO SCH (17:00)
[2022-10-17] MEDS: Scopolamine 1.5 mg/72 hour Patch TOP SCH (17:59)
[2022-10-17] MEDS: traZODone HCl 50 MG TAB PO SCH (21:13)
[2022-10-17] MEDS: Gabapentin 300 MG CAP PO SCH (21:13)
[2022-10-18 04:20] LABS: Mean Corpuscular HGB CONC 28.7 g/dL (32.0-36.0); Mean Corpuscular Hemoglobin 21.7 pg (27.0-31.0); Mean Corpuscular Volume 75.5 fl (78.0-98.0); RBC Distribution Width 19.8 % (11.5-14.5); Red Blood Cell (RBC) Count 4.61 mill/uL (4.70-6.10); White Blood Cell (WBC) Count 8.5 10x3/uL (4.8-10.8)
[2022-10-18 04:38] LABS: Anion Gap 17 mmol/L (10-20); BUN (Urea Nitrogen) 54 mg/dL (8.4-25.7); Calc. Creatinine Clearance 38 mL/min (70-130); Calcium 8.8 mg/dL (7.8-10.44); Carbon Dioxide 26 mmol/L (23-31); Chloride 105 mmol/L (98-107); Estimated GFR 31; Glucose 113 mg/dL (83-110); INR-International Normal Ratio 3.2; Potassium 4.9 mmol/L (3.5-5.1); Prothrombin Time 34.1 sec (12.0-14.7); Sodium 143 mmol/L (136-145)
[2022-10-18] MEDS: Levothyroxine Sodium 100 MCG TAB PO SCH (05:44)
[2022-10-18] MEDS: Furosemide 20 MG/2 ML VIAL SLOW IVP SCH (05:44)
[2022-10-18 06:32] LABS: Platelet Count 118 10x3/uL (130-400)
[2022-10-18] MEDS: Amiodarone 200 MG TAB PO SCH (09:59)
[2022-10-18] MEDS: busPIRone HCl 10 MG TAB PO SCH ×3 (09:59→20:17)
[2022-10-18] MEDS: Carbidopa/Levodopa 25-100 mg Tablet PO SCH ×3 (09:59→20:17)
[2022-10-18] MEDS: Midodrine HCl 5 MG TAB PO SCH ×3 (10:00→20:17)
[2022-10-18] MEDS: Gabapentin 300 MG CAP PO SCH (20:15)
[2022-10-18] MEDS: traZODone HCl 50 MG TAB PO SCH (20:17)
[2022-10-19 05:04] LABS: INR-International Normal Ratio 3.4
[2022-10-19 05:13] LABS: Anion Gap 18 mmol/L (10-20); BUN (Urea Nitrogen) 59 mg/dL (8.4-25.7); Calc. Creatinine Clearance 38 mL/min (70-130); Calcium 9.1 mg/dL (7.8-10.44); Carbon Dioxide 26 mmol/L (23-31); Chloride 104 mmol/L (98-107); Estimated GFR 32; Glucose 118 mg/dL (83-110); Potassium 4.2 mmol/L (3.5-5.1); Sodium 144 mmol/L (136-145)
[2022-10-19] MEDS: Levothyroxine Sodium 100 MCG TAB PO SCH (05:25)
[2022-10-19] MEDS: Midodrine HCl 5 MG TAB PO SCH ×3 (10:54→21:30)
[2022-10-19] MEDS: Amiodarone 200 MG TAB PO SCH (10:54)
[2022-10-19] MEDS: busPIRone HCl 10 MG TAB PO SCH ×3 (10:54→21:30)
[2022-10-19] MEDS: Carbidopa/Levodopa 25-100 mg Tablet PO SCH ×3 (10:55→21:30)
[2022-10-19] MEDS ORDERED: Warfarin Sodium 2 MG TAB PO SCH (17:00)
[2022-10-19] MEDS: Gabapentin 300 MG CAP PO SCH (21:30)
[2022-10-19] MEDS: traZODone HCl 50 MG TAB PO SCH (21:30)
[2022-10-19] MEDS: Melatonin 3 MG TAB PO PRN (21:31)
[2022-10-19] MEDS: Acetaminophen 325 MG TAB PO PRN (21:31)
[2022-10-20 05:07] LABS: #Eosinphils 0.1 thou/uL (0.0-0.7); #Monocytes 0.6 thou/uL (0.11-0.59); #Neutrophils 4.4 thou/uL (1.40-6.50); %Eosinophils 1.8 % (0.0-10.0); %Lymphocytes 16.9 % (21.0-51.0); %Monocytes 10.1 % (0.0-10.0); %Neutrophils 70.7 % (42.0-75.0); Mean Corpuscular Hemoglobin 20.9 pg (27.0-31.0); Mean Corpuscular Volume 74.7 fl (78.0-98.0); RBC Distribution Width 19.7 % (11.5-14.5); Red Blood Cell (RBC) Count 4.31 mill/uL (4.70-6.10); White Blood Cell (WBC) Count 6.2 10x3/uL (4.8-10.8)
[2022-10-20 05:23] LABS: Anion Gap 14 mmol/L (10-20); BUN (Urea Nitrogen) 53 mg/dL (8.4-25.7); Calc. Creatinine Clearance 47 mL/min (70-130); Calcium 8.8 mg/dL (7.8-10.44); Carbon Dioxide 29 mmol/L (23-31); Chloride 108 mmol/L (98-107); Estimated GFR 38; Glucose 102 mg/dL (83-110); Sodium 147 mmol/L (136-145)
[2022-10-20 05:42] LABS: Manual Diff?? YES; Platelet Count 97 10x3/uL (130-400)
[2022-10-20] MEDS: Levothyroxine Sodium 100 MCG TAB PO SCH (06:29)
[2022-10-20 07:09] LABS: Band 8 % (5-11); Lymphocytes 12 % (21-51); Monocytes 8 % (0-10); Neutrophil 72 % (42-75)
[2022-10-20 09:08] LABS: INR-International Normal Ratio 2.7; Prothrombin Time 29.8 sec (12.0-14.7)
[2022-10-20] MEDS: Carbidopa/Levodopa 25-100 mg Tablet PO SCH ×3 (10:09→19:56)
[2022-10-20] MEDS: Midodrine HCl 5 MG TAB PO SCH ×3 (10:09→19:56)
[2022-10-20] MEDS: busPIRone HCl 10 MG TAB PO SCH ×3 (10:09→19:56)
[2022-10-20] MEDS: Amiodarone 200 MG TAB PO SCH (10:09)
[2022-10-20] MEDS ORDERED: Lactated Ringer's 1,000 ML IV SCH (15:30)
[2022-10-20] MEDS: Scopolamine 1.5 mg/72 hour Patch TOP SCH (16:39)
[2022-10-20] MEDS: Warfarin Sodium 1 MG TAB PO SCH (16:40)
[2022-10-20] MEDS: traZODone HCl 50 MG TAB PO SCH (19:56)
[2022-10-20] MEDS: Gabapentin 300 MG CAP PO SCH (19:56)
[2022-10-21 04:45] LABS: #Eosinphils 0.1 thou/uL (0.0-0.7); #Monocytes 0.6 thou/uL (0.11-0.59); #Neutrophils 4.5 thou/uL (1.40-6.50); %Basophils 0.2 % (0.0-1.0); %Eosinophils 1.1 % (0.0-10.0); %Lymphocytes 18.5 % (21.0-51.0); %Monocytes 8.8 % (0.0-10.0); %Neutrophils 71.2 % (42.0-75.0); Hemoglobin 9.7 g/dL (14.0-18.0); Mean Corpuscular HGB CONC 27.8 g/dL (32.0-36.0); Mean Corpuscular Hemoglobin 21.3 pg (27.0-31.0); Mean Corpuscular Volume 76.5 fl (78.0-98.0); RBC Distribution Width 20.1 % (11.5-14.5); Red Blood Cell (RBC) Count 4.56 mill/uL (4.70-6.10); White Blood Cell (WBC) Count 6.3 10x3/uL (4.8-10.8)
[2022-10-21 04:51] LABS: Platelet Count 107 10x3/uL (130-400)
[2022-10-21 04:54] LABS: INR-International Normal Ratio 2.9; Prothrombin Time 31.9 sec (12.0-14.7)
[2022-10-21 05:05] LABS: Anion Gap 14 mmol/L (10-20); BUN (Urea Nitrogen) 45 mg/dL (8.4-25.7); Calc. Creatinine Clearance 63 mL/min (70-130); Calcium 8.9 mg/dL (7.8-10.44); Carbon Dioxide 26 mmol/L (23-31); Chloride 109 mmol/L (98-107); Estimated GFR 56; Glucose 112 mg/dL (83-110); Potassium 4.2 mmol/L (3.5-5.1); Sodium 145 mmol/L (136-145)
[2022-10-21] MEDS: Levothyroxine Sodium 100 MCG TAB PO SCH (05:33)
[2022-10-21] MEDS: Carbidopa/Levodopa 25-100 mg Tablet PO SCH ×3 (08:57→21:34)
[2022-10-21] MEDS: Midodrine HCl 5 MG TAB PO SCH ×3 (08:57→21:35)
[2022-10-21] MEDS: Acetaminophen 325 MG TAB PO PRN ×2 (08:57→21:32)
[2022-10-21] MEDS: Amiodarone 200 MG TAB PO SCH (08:58)
[2022-10-21] MEDS: busPIRone HCl 10 MG TAB PO SCH ×3 (08:58→21:34)
[2022-10-21] MEDS: DOBUTamine 500 mg/250 ml 250 ML IVPB SCH (09:00)
[2022-10-21] MEDS: Furosemide 40 MG/4 ML VIAL SLOW IVP SCH (14:20)
[2022-10-21] MEDS ORDERED: Warfarin Sodium 0.5 MG HALF.TAB PO SCH (17:00)
[2022-10-21] MEDS ORDERED: Warfarin Sodium 3 MG TAB PO SCH (17:00)
[2022-10-21] MEDS: Warfarin Sodium 1 MG TAB PO SCH (21:34)
[2022-10-21] MEDS: Gabapentin 300 MG CAP PO SCH (21:34)
[2022-10-21] MEDS: traZODone HCl 50 MG TAB PO SCH (21:35)
[2022-10-22] MEDS: DOBUTamine 500 mg/250 ml 250 ML IVPB SCH ×2 (02:23→20:56)
[2022-10-22 04:13] LABS: #Eosinphils 0.1 thou/uL (0.0-0.7); #Monocytes 0.7 thou/uL (0.11-0.59); #Neutrophils 5.9 thou/uL (1.40-6.50); %Basophils 0.1 % (0.0-1.0); %Eosinophils 0.8 % (0.0-10.0); %Lymphocytes 11.5 % (21.0-51.0); %Monocytes 9.3 % (0.0-10.0); %Neutrophils 77.6 % (42.0-75.0); Hemoglobin 8.7 g/dL (14.0-18.0); Mean Corpuscular HGB CONC 28.2 g/dL (32.0-36.0); Mean Corpuscular Hemoglobin 21.3 pg (27.0-31.0); Mean Corpuscular Volume 75.5 fl (78.0-98.0); RBC Distribution Width 20.3 % (11.5-14.5); Red Blood Cell (RBC) Count 4.08 mill/uL (4.70-6.10); White Blood Cell (WBC) Count 7.5 10x3/uL (4.8-10.8)
[2022-10-22 04:16] LABS: Platelet Count 104 10x3/uL (130-400)
[2022-10-22 04:26] LABS: INR-International Normal Ratio 2.5; Prothrombin Time 28.1 sec (12.0-14.7)
[2022-10-22 04:35] LABS: Anion Gap 14 mmol/L (10-20); BUN (Urea Nitrogen) 38 mg/dL (8.4-25.7); Calc. Creatinine Clearance 61 mL/min (70-130); Calcium 8.8 mg/dL (7.8-10.44); Carbon Dioxide 29 mmol/L (23-31); Chloride 107 mmol/L (98-107); Estimated GFR 54; Glucose 99 mg/dL (83-110); Potassium 3.7 mmol/L (3.5-5.1); Sodium 146 mmol/L (136-145)
[2022-10-22] MEDS: Levothyroxine Sodium 100 MCG TAB PO SCH (05:45)
[2022-10-22] MEDS: Furosemide 40 MG/4 ML VIAL SLOW IVP SCH ×2 (05:45→19:30)
[2022-10-22] MEDS: Carbidopa/Levodopa 25-100 mg Tablet PO SCH ×3 (10:21→20:57)
[2022-10-22] MEDS: Amiodarone 200 MG TAB PO SCH (10:21)
[2022-10-22] MEDS: busPIRone HCl 10 MG TAB PO SCH ×3 (10:21→20:56)
[2022-10-22] MEDS: Midodrine HCl 5 MG TAB PO SCH ×3 (10:21→20:57)
[2022-10-22] MEDS: Warfarin Sodium 1 MG TAB PO SCH (19:28)
[2022-10-22] MEDS: Acetaminophen 325 MG TAB PO PRN (20:56)
[2022-10-22] MEDS: traZODone HCl 50 MG TAB PO SCH (20:57)
[2022-10-22] MEDS: Gabapentin 300 MG CAP PO SCH (20:57)
[2022-10-23 04:22] LABS: #Eosinphils 0.1 thou/uL (0.0-0.7); #Monocytes 0.5 thou/uL (0.11-0.59); #Neutrophils 5.6 thou/uL (1.40-6.50); %Basophils 0.3 % (0.0-1.0); %Eosinophils 1.5 % (0.0-10.0); %Lymphocytes 11.8 % (21.0-51.0); %Monocytes 7.4 % (0.0-10.0); %Neutrophils 78.3 % (42.0-75.0); Hemoglobin 8.7 g/dL (14.0-18.0); Mean Corpuscular HGB CONC 28.2 g/dL (32.0-36.0); Mean Corpuscular Hemoglobin 20.7 pg (27.0-31.0); Mean Corpuscular Volume 73.4 fl (78.0-98.0); RBC Distribution Width 20.7 % (11.5-14.5); Red Blood Cell (RBC) Count 4.21 mill/uL (4.70-6.10); White Blood Cell (WBC) Count 7.2 10x3/uL (4.8-10.8)
[2022-10-23 04:27] LABS: Platelet Count 88 10x3/uL (130-400)
[2022-10-23 04:37] LABS: INR-International Normal Ratio 2.4; Prothrombin Time 27.6 sec (12.0-14.7)
[2022-10-23 04:46] LABS: Anion Gap 15 mmol/L (10-20); BUN (Urea Nitrogen) 38 mg/dL (8.4-25.7); Calc. Creatinine Clearance 71 mL/min (70-130); Calcium 8.7 mg/dL (7.8-10.44); Carbon Dioxide 28 mmol/L (23-31); Chloride 105 mmol/L (98-107); Estimated GFR 65; Glucose 97 mg/dL (83-110); Potassium 3.7 mmol/L (3.5-5.1); Sodium 144 mmol/L (136-145)
[2022-10-23 04:53] LABS: Anisocytosis MODERATE=16-30 cells HPF (0-5); Burr Cells SLIGHT = 2-5 cells HPF (0-1); Hypochromia MODERATE=16-30 cells HPF (0-5); Large Platelets 5.7 % (0-5); Macrocytosis MODERATE=16-30 cells HPF (0-5); Platelet Adequacy Comment Platelets Decreased; Polychromasia SLIGHT = 2-3 cells HPF (0-2); Target Cells SLIGHT = 2-5 cells HPF (0-1); Tear Drops MODERATE= 6-15 cells HPF (0-1)
[2022-10-23] MEDS: Levothyroxine Sodium 100 MCG TAB PO SCH ×2 (06:01→06:07)
[2022-10-23] MEDS: Furosemide 40 MG/4 ML VIAL SLOW IVP SCH ×2 (06:02→13:50)
[2022-10-23] MEDS: Acetaminophen 325 MG TAB PO PRN ×2 (09:07→19:37)
[2022-10-23] MEDS: Amiodarone 200 MG TAB PO SCH (09:09)
[2022-10-23] MEDS: Carbidopa/Levodopa 25-100 mg Tablet PO SCH ×3 (09:09→22:14)
[2022-10-23] MEDS: Midodrine HCl 5 MG TAB PO SCH ×3 (09:09→22:12)
[2022-10-23] MEDS: busPIRone HCl 10 MG TAB PO SCH ×3 (09:09→22:13)
[2022-10-23] MEDS: Warfarin Sodium 1 MG TAB PO SCH (17:23)
[2022-10-23] MEDS: DOBUTamine 500 mg/250 ml 250 ML IVPB SCH (17:23)
[2022-10-23] MEDS: Scopolamine 1.5 mg/72 hour Patch TOP SCH (17:26)
[2022-10-23] MEDS: traZODone HCl 50 MG TAB PO SCH (22:12)
[2022-10-23] MEDS: Gabapentin 300 MG CAP PO SCH (22:14)
[2022-10-24 05:28] LABS: #Eosinphils 0.1 thou/uL (0.0-0.7); #Monocytes 0.4 thou/uL (0.11-0.59); #Neutrophils 4.8 thou/uL (1.40-6.50); %Basophils 0.2 % (0.0-1.0); %Eosinophils 1.4 % (0.0-10.0); %Lymphocytes 16.5 % (21.0-51.0); %Monocytes 6.7 % (0.0-10.0); %Neutrophils 74.4 % (42.0-75.0); Hemoglobin 8.5 g/dL (14.0-18.0); Mean Corpuscular HGB CONC 28.6 g/dL (32.0-36.0); Mean Corpuscular Hemoglobin 21.3 pg (27.0-31.0); Mean Corpuscular Volume 74.3 fl (78.0-98.0); RBC Distribution Width 21.1 % (11.5-14.5); White Blood Cell (WBC) Count 6.4 10x3/uL (4.8-10.8)
[2022-10-24 05:41] LABS: INR-International Normal Ratio 2.5; Prothrombin Time 28.3 sec (12.0-14.7)
[2022-10-24 05:49] LABS: Anion Gap 16 mmol/L (10-20); BUN (Urea Nitrogen) 38 mg/dL (8.4-25.7); Calc. Creatinine Clearance 72 mL/min (70-130); Calcium 8.1 mg/dL (7.8-10.44); Carbon Dioxide 27 mmol/L (23-31); Chloride 104 mmol/L (98-107); Estimated GFR 66; Glucose 76 mg/dL (83-110); Potassium 3.5 mmol/L (3.5-5.1); Sodium 143 mmol/L (136-145)
[2022-10-24 05:58] LABS: Platelet Count 84 10x3/uL (130-400)
[2022-10-24] MEDS: Levothyroxine Sodium 100 MCG TAB PO SCH (06:47)
[2022-10-24] MEDS: Furosemide 40 MG/4 ML VIAL SLOW IVP SCH ×2 (06:47→15:06)
[2022-10-24 06:51] LABS: CellaVision Operator ID LAB.GE; Hypochromia MODERATE=16-30 cells HPF (0-5); Microcytosis SLIGHT = 6-15 cells HPF (0-5); Platelet Adequacy Comment Platelets Decreased; Polychromasia MARKED = >4 cells HPF (0-2); Target Cells SLIGHT = 2-5 cells HPF (0-1)
[2022-10-24] MEDS: Carbidopa/Levodopa 25-100 mg Tablet PO SCH ×3 (09:00→20:02)
[2022-10-24] MEDS: Amiodarone 200 MG TAB PO SCH (09:00)
[2022-10-24] MEDS: Midodrine HCl 5 MG TAB PO SCH ×3 (09:00→20:02)
[2022-10-24] MEDS: busPIRone HCl 10 MG TAB PO SCH ×3 (09:00→20:01)
[2022-10-24] MEDS: DOBUTamine 500 mg/250 ml 250 ML IVPB SCH (15:02)
[2022-10-24] MEDS: Warfarin Sodium 1 MG TAB PO SCH (17:08)
[2022-10-24] MEDS: traZODone HCl 50 MG TAB PO SCH (20:01)
[2022-10-24] MEDS: Gabapentin 300 MG CAP PO SCH (20:02)
[2022-10-25] MEDS: Levothyroxine Sodium 100 MCG TAB PO SCH (05:12)
[2022-10-25 05:45] LABS: #Eosinphils 0.1 thou/uL (0.0-0.7); #Monocytes 0.7 thou/uL (0.11-0.59); #Neutrophils 5.6 thou/uL (1.40-6.50); %Basophils 0.3 % (0.0-1.0); %Eosinophils 0.8 % (0.0-10.0); %Lymphocytes 16.4 % (21.0-51.0); %Monocytes 8.7 % (0.0-10.0); %Neutrophils 73.3 % (42.0-75.0); Hemoglobin 9.5 g/dL (14.0-18.0); Mean Corpuscular HGB CONC 28.2 g/dL (32.0-36.0); Mean Corpuscular Hemoglobin 20.5 pg (27.0-31.0); Mean Corpuscular Volume 72.6 fl (78.0-98.0); RBC Distribution Width 21.7 % (11.5-14.5); Red Blood Cell (RBC) Count 4.64 mill/uL (4.70-6.10); White Blood Cell (WBC) Count 7.7 10x3/uL (4.8-10.8)
[2022-10-25 05:53] LABS: INR-International Normal Ratio 2.2; Prothrombin Time 25.1 sec (12.0-14.7)
[2022-10-25 05:54] LABS: Platelet Count 92 10x3/uL (130-400)
[2022-10-25 06:15] LABS: Anion Gap 16 mmol/L (10-20); BUN (Urea Nitrogen) 36 mg/dL (8.4-25.7); Calc. Creatinine Clearance 70 mL/min (70-130); Calcium 8.4 mg/dL (7.8-10.44); Carbon Dioxide 28 mmol/L (23-31); Chloride 104 mmol/L (98-107); Estimated GFR 66; Glucose 70 mg/dL (83-110); Potassium 3.8 mmol/L (3.5-5.1); Sodium 144 mmol/L (136-145)
[2022-10-25] MEDS: Furosemide 40 MG TAB PO SCH (08:30)
[2022-10-25] MEDS: Carbidopa/Levodopa 25-100 mg Tablet PO SCH ×3 (08:30→21:58)
[2022-10-25] MEDS: busPIRone HCl 10 MG TAB PO SCH ×3 (08:30→21:57)
[2022-10-25] MEDS: Amiodarone 200 MG TAB PO SCH (08:30)
[2022-10-25] MEDS: Midodrine HCl 5 MG TAB PO SCH ×3 (08:30→21:57)
[2022-10-25] MEDS: Warfarin Sodium 1 MG TAB PO SCH (16:18)
[2022-10-25] MEDS: Gabapentin 300 MG CAP PO SCH (21:58)
[2022-10-25] MEDS: traZODone HCl 50 MG TAB PO SCH (21:58)
[2022-10-26] MEDS: Levothyroxine Sodium 100 MCG TAB PO SCH (05:40)
[2022-10-26 05:49] LABS: #Eosinphils 0.1 thou/uL (0.0-0.7); #Monocytes 0.5 thou/uL (0.11-0.59); #Neutrophils 5.3 thou/uL (1.40-6.50); %Basophils 0.3 % (0.0-1.0); %Eosinophils 1.2 % (0.0-10.0); %Lymphocytes 19.9 % (21.0-51.0); %Monocytes 7.2 % (0.0-10.0); %Neutrophils 70.9 % (42.0-75.0); Mean Corpuscular HGB CONC 28.2 g/dL (32.0-36.0); Mean Corpuscular Volume 74.4 fl (78.0-98.0); Platelet Count 105 10x3/uL (130-400); RBC Distribution Width 22.5 % (11.5-14.5); Red Blood Cell (RBC) Count 4.77 mill/uL (4.70-6.10); White Blood Cell (WBC) Count 7.5 10x3/uL (4.8-10.8)
[2022-10-26 06:22] LABS: INR-International Normal Ratio 2.2; Prothrombin Time 25.3 sec (12.0-14.7)
[2022-10-26 06:43] LABS: Anion Gap 18 mmol/L (10-20); BUN (Urea Nitrogen) 40 mg/dL (8.4-25.7); Calc. Creatinine Clearance 64 mL/min (70-130); Calcium 8.6 mg/dL (7.8-10.44); Carbon Dioxide 25 mmol/L (23-31); Chloride 102 mmol/L (98-107); Estimated GFR 61; Glucose 89 mg/dL (83-110); Potassium 3.4 mmol/L (3.5-5.1); Sodium 142 mmol/L (136-145)
[2022-10-26 08:09] LABS: Burr Cells MODERATE= 6-15 cells HPF (0-1); CellaVision Operator ID LAB.GE; Hypochromia MODERATE=16-30 cells HPF (0-5); Microcytosis SLIGHT = 6-15 cells HPF (0-5); Platelet Adequacy Comment Platelets Decreased; Poikilocytosis SLIGHT = 6-15 cells HPF (0-5); Polychromasia MODERATE = 3-4 cells HPF (0-2)
[2022-10-26] MEDS: Carbidopa/Levodopa 25-100 mg Tablet PO SCH ×3 (08:52→20:14)
[2022-10-26] MEDS: busPIRone HCl 10 MG TAB PO SCH ×3 (08:52→20:14)
[2022-10-26] MEDS: Furosemide 40 MG TAB PO SCH (08:52)
[2022-10-26] MEDS: Amiodarone 200 MG TAB PO SCH (08:52)
[2022-10-26] MEDS: Midodrine HCl 5 MG TAB PO SCH ×3 (08:57→20:13)
[2022-10-26] MEDS ORDERED: Midodrine HCl 5 MG TAB PO SCH (09:00)
[2022-10-26] MEDS: Scopolamine 1.5 mg/72 hour Patch TOP SCH (16:23)
[2022-10-26] MEDS: Warfarin Sodium 1 MG TAB PO SCH (16:23)
[2022-10-26] MEDS: traZODone HCl 50 MG TAB PO SCH (20:14)
[2022-10-26] MEDS: Gabapentin 300 MG CAP PO SCH (20:14)
[2022-10-27 05:33] LABS: #Eosinphils 0.1 thou/uL (0.0-0.7); #Monocytes 0.7 thou/uL (0.11-0.59); #Neutrophils 5.2 thou/uL (1.40-6.50); %Basophils 0.4 % (0.0-1.0); %Eosinophils 1.1 % (0.0-10.0); %Lymphocytes 20.6 % (21.0-51.0); %Monocytes 8.7 % (0.0-10.0); %Neutrophils 68.8 % (42.0-75.0); Hemoglobin 10.3 g/dL (14.0-18.0); Mean Corpuscular HGB CONC 27.8 g/dL (32.0-36.0); Mean Corpuscular Hemoglobin 20.5 pg (27.0-31.0); Mean Corpuscular Volume 73.7 fl (78.0-98.0); Platelet Count 129 10x3/uL (130-400); RBC Distribution Width 23.5 % (11.5-14.5); Red Blood Cell (RBC) Count 5.02 mill/uL (4.70-6.10); White Blood Cell (WBC) Count 7.6 10x3/uL (4.8-10.8)
[2022-10-27 05:55] LABS: INR-International Normal Ratio 2.1; Prothrombin Time 24.8 sec (12.0-14.7)
[2022-10-27] MEDS: Levothyroxine Sodium 100 MCG TAB PO SCH (06:04)
[2022-10-27 06:06] LABS: Anion Gap 19 mmol/L (10-20); BUN (Urea Nitrogen) 43 mg/dL (8.4-25.7); Calc. Creatinine Clearance 60 mL/min (70-130); Calcium 8.5 mg/dL (7.8-10.44); Carbon Dioxide 24 mmol/L (23-31); Chloride 105 mmol/L (98-107); Estimated GFR 55; Glucose 100 mg/dL (83-110); Potassium 3.6 mmol/L (3.5-5.1); Sodium 144 mmol/L (136-145)
[2022-10-27] MEDS: busPIRone HCl 10 MG TAB PO SCH ×3 (08:54→20:27)
[2022-10-27] MEDS: Furosemide 20 MG TAB PO SCH (08:54)
[2022-10-27] MEDS: Midodrine HCl 5 MG TAB PO SCH ×3 (08:55→20:26)
[2022-10-27] MEDS: Carbidopa/Levodopa 25-100 mg Tablet PO SCH ×3 (08:55→20:27)
[2022-10-27] MEDS: Amiodarone 200 MG TAB PO SCH (08:55)
[2022-10-27] MEDS: Warfarin Sodium 1 MG TAB PO SCH (16:04)
[2022-10-27] MEDS: traZODone HCl 50 MG TAB PO SCH (20:27)
[2022-10-27] MEDS: Gabapentin 300 MG CAP PO SCH (20:27)
[2022-10-27] MEDS: Melatonin 3 MG TAB PO PRN (20:27)
[2022-10-28] MEDS: Levothyroxine Sodium 100 MCG TAB PO SCH (05:50)
[2022-10-28] MEDS: Furosemide 20 MG TAB PO SCH (10:42)
[2022-10-28] MEDS: busPIRone HCl 10 MG TAB PO SCH ×3 (10:43→22:17)
[2022-10-28] MEDS: Amiodarone 200 MG TAB PO SCH (10:43)
[2022-10-28] MEDS: Midodrine HCl 5 MG TAB PO SCH ×3 (10:43→22:17)
[2022-10-28] MEDS: Carbidopa/Levodopa 25-100 mg Tablet PO SCH ×3 (10:43→22:18)
[2022-10-28] MEDS: DOBUTamine 500 mg/250 ml 250 ML IVPB SCH (15:36)
[2022-10-28] MEDS: Furosemide 40 MG/4 ML VIAL SLOW IVP SCH (15:38)
[2022-10-28] MEDS: Acetaminophen 325 MG TAB PO PRN (15:49)
[2022-10-28] MEDS: Warfarin Sodium 1 MG TAB PO SCH (16:47)
[2022-10-28] MEDS: traZODone HCl 50 MG TAB PO SCH (22:17)
[2022-10-28] MEDS: Gabapentin 300 MG CAP PO SCH (22:18)
[2022-10-29 04:28] LABS: #Eosinphils 0.1 thou/uL (0.0-0.7); #Monocytes 0.5 thou/uL (0.11-0.59); %Basophils 0.3 % (0.0-1.0); %Eosinophils 1.3 % (0.0-10.0); %Monocytes 7.5 % (0.0-10.0); %Neutrophils 65.4 % (42.0-75.0); Hemoglobin 9.4 g/dL (14.0-18.0); Mean Corpuscular HGB CONC 28.5 g/dL (32.0-36.0); Mean Corpuscular Hemoglobin 20.8 pg (27.0-31.0); Mean Corpuscular Volume 73.2 fl (78.0-98.0); Platelet Count 100 10x3/uL (130-400); RBC Distribution Width 24.3 % (11.5-14.5); Red Blood Cell (RBC) Count 4.51 mill/uL (4.70-6.10); White Blood Cell (WBC) Count 6.1 10x3/uL (4.8-10.8)
[2022-10-29 04:40] LABS: Prothrombin Time 23.4 sec (12.0-14.7)
[2022-10-29 04:54] LABS: ALT (SGPT) Less than 7 U/L (8-55); AST (SGOT) 19 U/L (5-34); Albumin 2.9 g/dL (3.4-4.8); Alkaline Phosphatase 73 U/L (40-110); Anion Gap 15 mmol/L (10-20); BUN (Urea Nitrogen) 42 mg/dL (8.4-25.7); Bilirubin, Total 4.9 mg/dL (0.2-1.2); Calc. Creatinine Clearance 57 mL/min (70-130); Calcium 8.5 mg/dL (7.8-10.44); Carbon Dioxide 28 mmol/L (23-31); Chloride 106 mmol/L (98-107); Estimated GFR 51; Globulin 3.1 g/dL (2.4-3.5); Glucose 88 mg/dL (83-110); Magnesium 2.3 mg/dL (1.6-2.6); Phosphorus 3.4 mg/dL (2.3-4.7); Potassium 3.2 mmol/L (3.5-5.1); Sodium 146 mmol/L (136-145)
[2022-10-29 05:37] LABS: Delete Auto Diff?? NO
[2022-10-29] MEDS: Furosemide 40 MG/4 ML VIAL SLOW IVP SCH (06:14)
[2022-10-29] MEDS: Levothyroxine Sodium 100 MCG TAB PO SCH (06:14)
[2022-10-29 06:37] LABS: Anisocytosis MARKED = >30 cells HPF (0-5); CellaVision Operator ID LAB.JMM; Hypochromia MODERATE=16-30 cells HPF (0-5); Macrocytosis SLIGHT = 6-15 cells HPF (0-5); Platelet Adequacy Comment Platelets Normal; Target Cells SLIGHT = 2-5 cells HPF (0-1)
[2022-10-29] MEDS: busPIRone HCl 10 MG TAB PO SCH ×3 (10:06→21:58)
[2022-10-29] MEDS: Amiodarone 200 MG TAB PO SCH (10:06)
[2022-10-29] MEDS: Carbidopa/Levodopa 25-100 mg Tablet PO SCH ×3 (10:07→21:58)
[2022-10-29] MEDS: Midodrine HCl 5 MG TAB PO SCH ×3 (10:07→21:58)
[2022-10-29] MEDS ORDERED: Warfarin Sodium 1.5 MG TAB PO SCH (17:00)
[2022-10-29] MEDS ORDERED: Warfarin Sodium 3 MG TAB PO SCH (17:00)
[2022-10-29] MEDS: DOBUTamine 500 mg/250 ml 250 ML IVPB SCH (17:16)
[2022-10-29] MEDS: Scopolamine 1.5 mg/72 hour Patch TOP SCH (17:20)
[2022-10-29] MEDS: Potassium Chloride 20 MEQ TAB PO SCH (17:20)
[2022-10-29] MEDS: Warfarin Sodium 1.5 MG TAB PO SCH (17:25)
[2022-10-29] MEDS: Melatonin 3 MG TAB PO PRN (21:58)
[2022-10-29] MEDS: traZODone HCl 50 MG TAB PO SCH (21:58)
[2022-10-29] MEDS: Gabapentin 300 MG CAP PO SCH (21:58)
[2022-10-30 05:23] LABS: INR-International Normal Ratio 2.1; Prothrombin Time 24.4 sec (12.0-14.7)
[2022-10-30] MEDS: Midodrine HCl 5 MG TAB PO SCH ×3 (09:59→21:49)
[2022-10-30] MEDS: Levothyroxine Sodium 100 MCG TAB PO SCH (10:00)
[2022-10-30] MEDS: Amiodarone 200 MG TAB PO SCH (10:00)
[2022-10-30] MEDS: busPIRone HCl 10 MG TAB PO SCH ×3 (10:02→21:50)
[2022-10-30] MEDS: Potassium Chloride 20 MEQ TAB PO SCH (10:02)
[2022-10-30] MEDS: Carbidopa/Levodopa 25-100 mg Tablet PO SCH ×3 (10:02→21:50)
[2022-10-30] MEDS: Furosemide 40 MG/4 ML VIAL SLOW IVP SCH (11:56)
[2022-10-30] MEDS: DOBUTamine 500 mg/250 ml 250 ML IVPB SCH (14:10)
[2022-10-30] MEDS: Warfarin Sodium 1.5 MG TAB PO SCH (18:10)
[2022-10-30] MEDS: Gabapentin 300 MG CAP PO SCH (21:49)
[2022-10-30] MEDS: traZODone HCl 50 MG TAB PO SCH (21:50)
[2022-10-31 05:29] LABS: #Eosinphils 0.1 thou/uL (0.0-0.7); #Monocytes 0.6 thou/uL (0.11-0.59); #Neutrophils 5.4 thou/uL (1.40-6.50); %Basophils 0.4 % (0.0-1.0); %Eosinophils 0.7 % (0.0-10.0); %Monocytes 8.4 % (0.0-10.0); Hemoglobin 9.9 g/dL (14.0-18.0); Mean Corpuscular HGB CONC 28.4 g/dL (32.0-36.0); Mean Corpuscular Hemoglobin 21.3 pg (27.0-31.0); Mean Corpuscular Volume 75.2 fl (78.0-98.0); Platelet Count 103 10x3/uL (130-400); RBC Distribution Width 24.8 % (11.5-14.5); Red Blood Cell (RBC) Count 4.64 mill/uL (4.70-6.10); White Blood Cell (WBC) Count 7.4 10x3/uL (4.8-10.8)
[2022-10-31 05:53] LABS: ALT (SGPT) Less than 7 U/L (8-55); AST (SGOT) 18 U/L (5-34); Albumin 3.1 g/dL (3.4-4.8); Alkaline Phosphatase 76 U/L (40-110); Anion Gap 18 mmol/L (10-20); BUN (Urea Nitrogen) 36 mg/dL (8.4-25.7); Bilirubin, Total 5.5 mg/dL (0.2-1.2); Calc. Creatinine Clearance 65 mL/min (70-130); Calcium 8.7 mg/dL (7.8-10.44); Carbon Dioxide 26 mmol/L (23-31); Chloride 106 mmol/L (98-107); Estimated GFR 63; Globulin 3.3 g/dL (2.4-3.5); Glucose 96 mg/dL (83-110); Magnesium 2.3 mg/dL (1.6-2.6); Phosphorus 2.9 mg/dL (2.3-4.7); Potassium 3.7 mmol/L (3.5-5.1); Protein, Total 6.4 g/dL (5.8-8.1); Sodium 146 mmol/L (136-145)
[2022-10-31 05:58] LABS: INR-International Normal Ratio 2.1; Prothrombin Time 24.5 sec (12.0-14.7)
[2022-10-31] MEDS: Levothyroxine Sodium 100 MCG TAB PO SCH (06:41)
[2022-10-31 07:08] LABS: Burr Cells MODERATE= 6-15 cells HPF (0-1); CellaVision Operator ID LAB.GE; Hypochromia SLIGHT = 6-15 cells HPF (0-5); Microcytosis SLIGHT = 6-15 cells HPF (0-5); Platelet Adequacy Comment Platelets Decreased; Polychromasia MODERATE = 3-4 cells HPF (0-2)
[2022-10-31] MEDS: busPIRone HCl 10 MG TAB PO SCH ×3 (11:03→22:34)
[2022-10-31] MEDS: Furosemide 40 MG/4 ML VIAL SLOW IVP SCH (11:03)
[2022-10-31] MEDS: Carbidopa/Levodopa 25-100 mg Tablet PO SCH ×3 (11:03→22:34)
[2022-10-31] MEDS: Midodrine HCl 5 MG TAB PO SCH ×3 (11:03→22:34)
[2022-10-31] MEDS: Amiodarone 200 MG TAB PO SCH (11:04)
[2022-10-31] MEDS: Warfarin Sodium 1.5 MG TAB PO SCH (16:46)
[2022-10-31] MEDS: Gabapentin 300 MG CAP PO SCH (22:34)
[2022-10-31] MEDS: traZODone HCl 50 MG TAB PO SCH (22:34)
[2022-11-01] MEDS: Levothyroxine Sodium 100 MCG TAB PO SCH (06:07)
[2022-11-01 06:11] LABS: INR-International Normal Ratio 2.5; Prothrombin Time 28.3 sec (12.0-14.7)
[2022-11-01] MEDS: Furosemide 40 MG/4 ML VIAL SLOW IVP SCH (09:12)
[2022-11-01] MEDS: busPIRone HCl 10 MG TAB PO SCH ×3 (09:12→21:44)
[2022-11-01] MEDS: Amiodarone 200 MG TAB PO SCH (09:12)
[2022-11-01] MEDS: Carbidopa/Levodopa 25-100 mg Tablet PO SCH ×3 (09:12→21:44)
[2022-11-01] MEDS: Midodrine HCl 5 MG TAB PO SCH ×3 (09:12→21:43)
[2022-11-01] MEDS: DOBUTamine 500 mg/250 ml 250 ML IVPB SCH (09:12)
[2022-11-01] MEDS: Scopolamine 1.5 mg/72 hour Patch TOP SCH (16:24)
[2022-11-01] MEDS: Warfarin Sodium 1.5 MG TAB PO SCH (16:32)
[2022-11-01] MEDS: Gabapentin 300 MG CAP PO SCH (21:43)
[2022-11-01] MEDS: traZODone HCl 50 MG TAB PO SCH (21:43)
[2022-11-02 04:21] LABS: #Monocytes 0.6 thou/uL (0.11-0.59); %Basophils 0.1 % (0.0-1.0); %Eosinophils 0.2 % (0.0-10.0); %Lymphocytes 10.6 % (21.0-51.0); %Monocytes 5.6 % (0.0-10.0); %Neutrophils 82.9 % (42.0-75.0); Hemoglobin 9.5 g/dL (14.0-18.0); Mean Corpuscular HGB CONC 27.9 g/dL (32.0-36.0); Mean Corpuscular Hemoglobin 20.8 pg (27.0-31.0); Mean Corpuscular Volume 74.6 fl (78.0-98.0); RBC Distribution Width 25.5 % (11.5-14.5); Red Blood Cell (RBC) Count 4.56 mill/uL (4.70-6.10); White Blood Cell (WBC) Count 10.9 10x3/uL (4.8-10.8)
[2022-11-02 04:45] LABS: ALT (SGPT) 8 U/L (8-55); AST (SGOT) 23 U/L (5-34); Albumin 3.1 g/dL (3.4-4.8); Alkaline Phosphatase 83 U/L (40-110); Anion Gap 18 mmol/L (10-20); BUN (Urea Nitrogen) 39 mg/dL (8.4-25.7); Bilirubin, Total 6.2 mg/dL (0.2-1.2); Calc. Creatinine Clearance 55 mL/min (70-130); Calcium 8.9 mg/dL (7.8-10.44); Carbon Dioxide 26 mmol/L (23-31); Chloride 107 mmol/L (98-107); Estimated GFR 53; Globulin 3.5 g/dL (2.4-3.5); Glucose 115 mg/dL (83-110); Magnesium 2.1 mg/dL (1.6-2.6); Potassium 4.1 mmol/L (3.5-5.1); Protein, Total 6.6 g/dL (5.8-8.1); Sodium 147 mmol/L (136-145)
[2022-11-02 04:48] LABS: Platelet Count 104 10x3/uL (130-400)
[2022-11-02] MEDS: DOBUTamine 500 mg/250 ml 250 ML IVPB SCH (05:04)
[2022-11-02 05:28] LABS: Prothrombin Time 32.3 sec (12.0-14.7)
[2022-11-02] MEDS: Levothyroxine Sodium 100 MCG TAB PO SCH (06:15)
[2022-11-02] MEDS: busPIRone HCl 10 MG TAB PO SCH ×3 (08:48→20:26)
[2022-11-02] MEDS: Midodrine HCl 5 MG TAB PO SCH ×3 (08:48→20:26)
[2022-11-02] MEDS: Carbidopa/Levodopa 25-100 mg Tablet PO SCH ×3 (08:48→20:26)
[2022-11-02] MEDS: Amiodarone 200 MG TAB PO SCH (08:49)
[2022-11-02] MEDS: Furosemide 40 MG/4 ML VIAL SLOW IVP SCH (11:25)
[2022-11-02] MEDS ORDERED: Warfarin Sodium 1 MG TAB PO SCH (17:00)
[2022-11-02] MEDS: Gabapentin 300 MG CAP PO SCH (20:26)
[2022-11-02] MEDS: traZODone HCl 50 MG TAB PO SCH (20:27)
[2022-11-03] MEDS: DOBUTamine 500 mg/250 ml 250 ML IVPB SCH ×2 (01:17→18:17)
[2022-11-03 04:48] LABS: INR-International Normal Ratio 3.3; Prothrombin Time 35.3 sec (12.0-14.7)
[2022-11-03 05:01] LABS: Anion Gap 20 mmol/L (10-20); BUN (Urea Nitrogen) 43 mg/dL (8.4-25.7); Calc. Creatinine Clearance 52 mL/min (70-130); Calcium 8.8 mg/dL (7.8-10.44); Carbon Dioxide 24 mmol/L (23-31); Chloride 109 mmol/L (98-107); Estimated GFR 49; Glucose 117 mg/dL (83-110); Potassium 3.6 mmol/L (3.5-5.1); Sodium 149 mmol/L (136-145)
[2022-11-03] MEDS: Levothyroxine Sodium 100 MCG TAB PO SCH (05:26)
[2022-11-03] MEDS: busPIRone HCl 10 MG TAB PO SCH ×3 (09:41→20:41)
[2022-11-03] MEDS: Carbidopa/Levodopa 25-100 mg Tablet PO SCH ×3 (09:41→20:41)
[2022-11-03] MEDS: Midodrine HCl 5 MG TAB PO SCH ×3 (09:41→20:40)
[2022-11-03] MEDS: Amiodarone 200 MG TAB PO SCH (09:42)
[2022-11-03] MEDS: Furosemide 40 MG/4 ML VIAL SLOW IVP SCH (09:42)
[2022-11-03] MEDS ORDERED: Warfarin Sodium 1 MG TAB PO SCH (10:30)
[2022-11-03] MEDS: Pantoprazole 40 MG VIAL IVP SCH (12:26)
[2022-11-03] MEDS ORDERED: Piperacillin/Tazobactam 3.375 GM VIAL ONE (15:20)
[2022-11-03] MEDS ORDERED: Sodium Chloride 0.9% 100 ML ONE (15:20)
[2022-11-03 16:00] VITALS: BMI 17.6
[2022-11-03] MEDS: Acetaminophen 325 MG TAB PO PRN (20:41)
[2022-11-03] MEDS: traZODone HCl 50 MG TAB PO SCH (20:41)
[2022-11-03] MEDS: Gabapentin 300 MG CAP PO SCH (20:41)
[2022-11-04] MEDS: Levothyroxine Sodium 100 MCG TAB PO SCH (05:07)
[2022-11-04 05:16] LABS: #Eosinphils 0.1 thou/uL (0.0-0.7); #Monocytes 0.5 thou/uL (0.11-0.59); #Neutrophils 7.4 thou/uL (1.40-6.50); %Basophils 0.2 % (0.0-1.0); %Eosinophils 0.8 % (0.0-10.0); %Lymphocytes 10.6 % (21.0-51.0); %Monocytes 5.5 % (0.0-10.0); %Neutrophils 82.1 % (42.0-75.0); Hemoglobin 9.6 g/dL (14.0-18.0); Mean Corpuscular HGB CONC 28.4 g/dL (32.0-36.0); Red Blood Cell (RBC) Count 4.57 mill/uL (4.70-6.10); White Blood Cell (WBC) Count 9.1 10x3/uL (4.8-10.8)
[2022-11-04 05:17] LABS: Platelet Count 103 10x3/uL (130-400)
[2022-11-04 05:28] LABS: INR-International Normal Ratio 3.6; Prothrombin Time 37.3 sec (12.0-14.7)
[2022-11-04 05:47] LABS: Anion Gap 19 mmol/L (10-20); BUN (Urea Nitrogen) 48 mg/dL (8.4-25.7); Calc. Creatinine Clearance 33 mL/min (70-130); Calcium 8.8 mg/dL (7.8-10.44); Carbon Dioxide 24 mmol/L (23-31); Chloride 107 mmol/L (98-107); Estimated GFR 44; Glucose 111 mg/dL (83-110); Magnesium 2.4 mg/dL (1.6-2.6); Phosphorus 3.2 mg/dL (2.3-4.7); Potassium 3.5 mmol/L (3.5-5.1); Sodium 146 mmol/L (136-145)
[2022-11-04] MEDS: DOBUTamine 500 mg/250 ml 250 ML IVPB SCH ×2 (07:56→23:23)
[2022-11-04] MEDS: Midodrine HCl 5 MG TAB PO SCH ×3 (09:56→23:04)
[2022-11-04] MEDS: busPIRone HCl 10 MG TAB PO SCH ×3 (09:57→23:04)
[2022-11-04] MEDS: Amiodarone 200 MG TAB PO SCH (09:57)
[2022-11-04] MEDS: Carbidopa/Levodopa 25-100 mg Tablet PO SCH ×3 (09:57→23:04)
[2022-11-04] MEDS: Pantoprazole 40 MG VIAL IVP SCH (09:57)
[2022-11-04] MEDS: Scopolamine 1.5 mg/72 hour Patch TOP SCH (16:29)
[2022-11-04] MEDS: Folic Acid 1 MG TAB PO SCH (23:04)
[2022-11-04] MEDS: Cyanocobalamin (Vitamin B-12) 1,000 MCG TAB PO SCH (23:04)
[2022-11-04] MEDS: Gabapentin 300 MG CAP PO SCH (23:04)
[2022-11-04] MEDS: Thiamine 100 MG TAB PO SCH (23:05)
[2022-11-04] MEDS: pyridOXINE 50 MG (B6) TAB PO SCH (23:05)
[2022-11-04] MEDS: traZODone HCl 50 MG TAB PO SCH (23:05)
[2022-11-04] MEDS ORDERED: Ipratropium/Albuterol 3 ML NEB ONE (23:27)
[2022-11-04 23:41] LABS: #Monocytes 0.6 thou/uL (0.11-0.59); #Neutrophils 8.6 thou/uL (1.40-6.50); %Basophils 0.1 % (0.0-1.0); %Lymphocytes 5.8 % (21.0-51.0); %Monocytes 5.7 % (0.0-10.0); %Neutrophils 87.7 % (42.0-75.0); Hemoglobin 9.5 g/dL (14.0-18.0); Mean Corpuscular HGB CONC 27.6 g/dL (32.0-36.0); Mean Corpuscular Hemoglobin 20.7 pg (27.0-31.0); Mean Corpuscular Volume 74.9 fl (78.0-98.0); Platelet Count 127 10x3/uL (130-400); RBC Distribution Width 25.7 % (11.5-14.5); Red Blood Cell (RBC) Count 4.59 mill/uL (4.70-6.10); White Blood Cell (WBC) Count 9.8 10x3/uL (4.8-10.8)
[2022-11-04] MEDS ORDERED: Ventilator Sedation Protocol 1 EACH FS ONE (23:42)
[2022-11-04] MEDS ORDERED: DISCONTINUE PREVIOUS NARCOTIC PAIN MEDICATIONS AND BENZODIAZEPINES FS SCH (23:45)
[2022-11-04] MEDS ORDERED: Propofol 1,000 MG/100 ML VIAL IV PRN (23:45)
[2022-11-04] MEDS ORDERED: Lorazepam 2 MG/ML VIAL SLOW IVP PRN (23:45)
[2022-11-04] MEDS ORDERED: Propofol BOLUS 1,000 MG/100 ML VIAL IV PRN (23:45)
[2022-11-04] MEDS ORDERED: Fentanyl BOLUS 250 ML IVPB PRN (23:45)
[2022-11-04] MEDS ORDERED: NOREPINEPHRINE 8 MG/250 ML-D5W 250 ML ONE (23:48)
[2022-11-04] MEDS: NOREPINEPHRINE 8 MG/250 ML-D5W 250 ML IVPB SCH (23:51)
[2022-11-05 00:10] LABS: ALT (SGPT) Less than 7 U/L (8-55); AST (SGOT) 16 U/L (5-34); Albumin 3.2 g/dL (3.4-4.8); Alkaline Phosphatase 78 U/L (40-110); Anion Gap 20 mmol/L (10-20); BUN (Urea Nitrogen) 55 mg/dL (8.4-25.7); Bilirubin, Total 7.9 mg/dL (0.2-1.2); Calc. Creatinine Clearance 26 mL/min (70-130); Calcium 8.8 mg/dL (7.8-10.44); Carbon Dioxide 25 mmol/L (23-31); Chloride 106 mmol/L (98-107); Estimated GFR 32; Globulin 3.5 g/dL (2.4-3.5); Glucose 141 mg/dL (83-110); Potassium 3.9 mmol/L (3.5-5.1); Protein, Total 6.7 g/dL (5.8-8.1); Sodium 147 mmol/L (136-145)
[2022-11-05 00:14] LABS: Troponin I 0.095 ng/mL (< 0.028)
[2022-11-05] MEDS: Gabapentin 300 MG CAP PO SCH ×2 (00:14→21:54)
[2022-11-05] MEDS ORDERED: Rocuronium Bromide 10 MG/ML (10ML VIAL) IVP SCH (00:15)
[2022-11-05] MEDS ORDERED: Rocuronium Bromide 10 MG/ML (10ML VIAL) ONE (00:15)
[2022-11-05] MEDS: busPIRone HCl 10 MG TAB PO SCH ×4 (00:15→15:14)
[2022-11-05] MEDS: Carbidopa/Levodopa 25-100 mg Tablet PO SCH ×4 (00:17→20:38)
[2022-11-05] MEDS: Thiamine 100 MG TAB PO SCH (00:17)
[2022-11-05] MEDS: Midodrine HCl 5 MG TAB PO SCH ×4 (00:17→20:38)
[2022-11-05] MEDS: Cyanocobalamin (Vitamin B-12) 1,000 MCG TAB PO SCH ×2 (00:17→20:48)
[2022-11-05] MEDS: pyridOXINE 50 MG (B6) TAB PO SCH ×2 (00:17→20:38)
[2022-11-05] MEDS: Folic Acid 1 MG TAB PO SCH ×2 (00:17→20:38)
[2022-11-05] MEDS: traZODone HCl 50 MG TAB PO SCH ×2 (00:18→21:54)
[2022-11-05 00:19] LABS: Base Excess (BEa) -1.2 mEq/L (-2.0 to +3.0); CO2 Tension 36.9 mmHg (35.0-45.0); Calcium, Ionized (arterial) 1.09 mmol/L (1.12-1.30); Carboxyhemoglobin (COHb) 1.4 gm% (0.0-3.0); Hematocrit-ABG 32 % (42.0-52.0); Hemoglobin (Hb) 10.9 g/dL (14.0-18.0); O2 Tension (PaO2), arterial 366.1 mmHg (> 70.0); Potassium - ABG Lab 3.63 mmol/L (3.70-5.30); pH, Arterial 7.413 (7.35-7.45)
[2022-11-05 00:21] LABS: ALV-art Gradient 300.775 mmHg (0-20); Puncture Site LBA
[2022-11-05] MEDS: Fentanyl CADD 100 ML IV SCH (00:43)
[2022-11-05] MEDS ORDERED: Dextrose 5% in Water 1,000 ML IV PRN (00:46)
[2022-11-05] MEDS ORDERED: Glucagon 1 MG/ML KIT IM PRN (00:46)
[2022-11-05] MEDS ORDERED: HumaLOG 300 UNITS/3 ML VIAL SC PRN ×2 (00:46)
[2022-11-05] MEDS ORDERED: Dextrose 50% Abboject 50 ML SYRINGE SLOW IVP PRN (00:46)
[2022-11-05 01:40] LABS: Hemoglobin 10.3 g/dL (14.0-18.0); Mean Corpuscular HGB CONC 28.2 g/dL (32.0-36.0); Mean Corpuscular Hemoglobin 21.1 pg (27.0-31.0); Mean Corpuscular Volume 74.8 fl (78.0-98.0); Platelet Count 90 10x3/uL (130-400); RBC Distribution Width 25.9 % (11.5-14.5); Red Blood Cell (RBC) Count 4.88 mill/uL (4.70-6.10); White Blood Cell (WBC) Count 10.4 10x3/uL (4.8-10.8)
[2022-11-05 01:43] LABS: Delete Auto Diff?? YES; Manual Diff?? YES
[2022-11-05 01:58] LABS: Lactic Acid 3.8 mmol/L (0.5-2.2)
[2022-11-05 02:30] LABS: Anisocytosis SLIGHT = 6-15 cells HPF (0-5); Band 5 % (5-11); Burr Cells SLIGHT = 2-5 cells HPF (0-1); Hypochromia SLIGHT = 6-15 cells HPF (0-5); Large Platelets 7.1 % (0-5); Microcytosis SLIGHT = 6-15 cells HPF (0-5); Monocytes 3 % (0-10); Neutrophil 92 % (42-75); Ovalocytes SLIGHT = 2-5 cells HPF (0-1); Platelet Adequacy Comment Platelets Decreased; Poikilocytosis SLIGHT = 6-15 cells HPF (0-5); Polychromasia SLIGHT = 2-3 cells HPF (0-2); Target Cells SLIGHT = 2-5 cells HPF (0-1); Total Cell Count 98
[2022-11-05 04:31] LABS: INR-International Normal Ratio 4.1; Prothrombin Time 41.3 sec (12.0-14.7)
[2022-11-05 05:49] LABS: #Monocytes 0.8 thou/uL (0.11-0.59); #Neutrophils 10.6 thou/uL (1.40-6.50); %Basophils 0.3 % (0.0-1.0); %Lymphocytes 4.4 % (21.0-51.0); %Monocytes 6.5 % (0.0-10.0); Hemoglobin 10.1 g/dL (14.0-18.0); Mean Corpuscular HGB CONC 28.4 g/dL (32.0-36.0); Mean Corpuscular Volume 74.2 fl (78.0-98.0); Platelet Count 112 10x3/uL (130-400); RBC Distribution Width 25.6 % (11.5-14.5)
[2022-11-05] MEDS: Levothyroxine Sodium 100 MCG TAB PO SCH (06:02)
[2022-11-05 06:04] LABS: Anion Gap 22 mmol/L (10-20); BUN (Urea Nitrogen) 54 mg/dL (8.4-25.7); Calc. Creatinine Clearance 37 mL/min (70-130); Calcium 8.6 mg/dL (7.8-10.44); Carbon Dioxide 21 mmol/L (23-31); Chloride 107 mmol/L (98-107); Estimated GFR 34; Glucose 142 mg/dL (83-110); Magnesium 2.4 mg/dL (1.6-2.6); Potassium 3.9 mmol/L (3.5-5.1); Sodium 146 mmol/L (136-145)
[2022-11-05] MEDS: NOREPINEPHRINE 8 MG/250 ML-D5W 250 ML IVPB SCH ×2 (09:04→16:21)
[2022-11-05] MEDS: Amiodarone 200 MG TAB PO SCH (09:05)
[2022-11-05] MEDS: Albumin 25% 25 GM/100 ML BOT IVPB SCH ×3 (09:06→20:13)
[2022-11-05] MEDS: Thiamine HCl 200 MG/2 ML VIAL SLOW IVP SCH (09:06)
[2022-11-05] MEDS: Pantoprazole 40 MG VIAL IVP SCH (13:00)
[2022-11-05] MEDS: DOBUTamine 500 mg/250 ml 250 ML IVPB SCH (21:47)
[2022-11-06] MEDS: NOREPINEPHRINE 8 MG/250 ML-D5W 250 ML IVPB SCH ×4 (02:11→15:29)
[2022-11-06] MEDS: Albumin 25% 25 GM/100 ML BOT IVPB SCH ×2 (02:11→09:23)
[2022-11-06] MEDS: DOBUTamine 500 mg/250 ml 250 ML IVPB SCH ×5 (02:11→22:55)
[2022-11-06 04:18] LABS: Hemoglobin 8.6 g/dL (14.0-18.0); Mean Corpuscular HGB CONC 29.6 g/dL (32.0-36.0); Mean Corpuscular Hemoglobin 21.3 pg (27.0-31.0); Mean Corpuscular Volume 72.2 fl (78.0-98.0); Platelet Count 92 10x3/uL (130-400); RBC Distribution Width 25.1 % (11.5-14.5); Red Blood Cell (RBC) Count 4.03 mill/uL (4.70-6.10); White Blood Cell (WBC) Count 8.3 10x3/uL (4.8-10.8)
[2022-11-06 04:19] LABS: Delete Auto Diff?? YES; Manual Diff?? YES
[2022-11-06 04:29] LABS: INR-International Normal Ratio 5.8
[2022-11-06 04:41] LABS: Phosphorus 3.5 mg/dL (2.3-4.7)
[2022-11-06 04:43] LABS: Anion Gap 18 mmol/L (10-20); BUN (Urea Nitrogen) 55 mg/dL (8.4-25.7); Calc. Creatinine Clearance 32 mL/min (70-130); Calcium 8.2 mg/dL (7.8-10.44); Carbon Dioxide 20 mmol/L (23-31); Chloride 104 mmol/L (98-107); Estimated GFR 28; Glucose 135 mg/dL (83-110); Magnesium 2.1 mg/dL (1.6-2.6); Potassium 3.9 mmol/L (3.5-5.1); Sodium 138 mmol/L (136-145)
[2022-11-06 04:50] LABS: Anisocytosis MODERATE=16-30 cells HPF (0-5); Band 47 % (5-11); CellaVision Operator ID LAB.CLH1; Eosinophils 1 % (0-10); Hypochromia SLIGHT = 6-15 cells HPF (0-5); Large Platelets 11.8 % (0-5); Lymphocytes 9 % (21-51); Metamyelocyte 1 % (0-0); Microcytosis SLIGHT = 6-15 cells HPF (0-5); Monocytes 3 % (0-10); Neutrophil 38 % (42-75); Nucleated RBC (Manual Ct) 6 % (0); Platelet Adequacy Comment Platelets Decreased; Poikilocytosis SLIGHT = 6-15 cells HPF (0-5); Polychromasia MODERATE = 3-4 cells HPF (0-2); Reactive Lymphocytes 1 % (0-10); Target Cells SLIGHT = 2-5 cells HPF (0-1); Total Cell Count 102
[2022-11-06] MEDS: Levothyroxine Sodium 100 MCG TAB PO SCH (05:12)
[2022-11-06] MEDS: Thiamine HCl 200 MG/2 ML VIAL SLOW IVP SCH (09:23)
[2022-11-06] MEDS: busPIRone HCl 10 MG TAB PO SCH ×3 (09:24→20:03)
[2022-11-06] MEDS: Carbidopa/Levodopa 25-100 mg Tablet PO SCH ×3 (09:24→20:04)
[2022-11-06] MEDS: Midodrine HCl 5 MG TAB PO SCH ×3 (09:24→20:03)
[2022-11-06] MEDS: Amiodarone 200 MG TAB PO SCH (09:24)
[2022-11-06] MEDS: Pantoprazole 40 MG VIAL IVP SCH (10:12)
[2022-11-06 14:55] VITALS: BP 94/56
[2022-11-06] MEDS: Fentanyl CADD 100 ML IV SCH (16:33)
[2022-11-06] MEDS ORDERED: Warfarin Sodium 0.5 MG HALF.TAB PO SCH (17:00)
[2022-11-06] MEDS: Gabapentin 300 MG CAP PO SCH (20:01)
[2022-11-06] MEDS: pyridOXINE 50 MG (B6) TAB PO SCH (20:01)
[2022-11-06] MEDS: Cyanocobalamin (Vitamin B-12) 1,000 MCG TAB PO SCH (20:01)
[2022-11-06] MEDS: traZODone HCl 50 MG TAB PO SCH (20:03)
[2022-11-06] MEDS: Folic Acid 1 MG TAB PO SCH (20:04)
[2022-11-07] MEDS: NOREPINEPHRINE 8 MG/250 ML-D5W 250 ML IVPB SCH ×4 (02:45→20:21)
[2022-11-07 04:12] LABS: #Monocytes 0.3 thou/uL (0.11-0.59); #Neutrophils 7.8 thou/uL (1.40-6.50); %Basophils 0.1 % (0.0-1.0); %Eosinophils 0.1 % (0.0-10.0); %Lymphocytes 5.5 % (21.0-51.0); %Monocytes 3.9 % (0.0-10.0); %Neutrophils 89.3 % (42.0-75.0); Hemoglobin 8.7 g/dL (14.0-18.0); Mean Corpuscular HGB CONC 29.7 g/dL (32.0-36.0); Mean Corpuscular Hemoglobin 20.9 pg (27.0-31.0); Mean Corpuscular Volume 70.4 fl (78.0-98.0); RBC Distribution Width 25.1 % (11.5-14.5); Red Blood Cell (RBC) Count 4.16 mill/uL (4.70-6.10); White Blood Cell (WBC) Count 8.7 10x3/uL (4.8-10.8)
[2022-11-07 04:16] LABS: Platelet Count 84 10x3/uL (130-400)
[2022-11-07 04:21] LABS: Prothrombin Time 56.1 sec (12.0-14.7)
[2022-11-07 04:35] LABS: ALT (SGPT) Less than 7 U/L (8-55); AST (SGOT) 34 U/L (5-34); Albumin 3.5 g/dL (3.4-4.8); Alkaline Phosphatase 58 U/L (40-110); Anion Gap 18 mmol/L (10-20); BUN (Urea Nitrogen) 66 mg/dL (8.4-25.7); Calc. Creatinine Clearance 32 mL/min (70-130); Calcium 7.9 mg/dL (7.8-10.44); Carbon Dioxide 23 mmol/L (23-31); Chloride 99 mmol/L (98-107); Estimated GFR 27; Globulin 2.9 g/dL (2.4-3.5); Glucose 132 mg/dL (83-110); Potassium 4.6 mmol/L (3.5-5.1); Protein, Total 6.4 g/dL (5.8-8.1); Sodium 135 mmol/L (136-145)
[2022-11-07] MEDS: DOBUTamine 500 mg/250 ml 250 ML IVPB SCH ×4 (04:59→20:22)
[2022-11-07] MEDS: Levothyroxine Sodium 100 MCG TAB PO SCH (05:01)
[2022-11-07] MEDS: busPIRone HCl 10 MG TAB PO SCH ×3 (08:26→20:22)
[2022-11-07] MEDS: Thiamine HCl 200 MG/2 ML VIAL SLOW IVP SCH (08:26)
[2022-11-07] MEDS: Amiodarone 200 MG TAB PO SCH (08:26)
[2022-11-07] MEDS: Carbidopa/Levodopa 25-100 mg Tablet PO SCH ×3 (08:26→20:22)
[2022-11-07] MEDS: Midodrine HCl 5 MG TAB PO SCH ×3 (08:26→20:22)
[2022-11-07] MEDS ORDERED: Phytonadione 10 MG/ML AMP SLOW IVP SCH (09:15)
[2022-11-07] MEDS ORDERED: Phytonadione 5 MG in Sodium Chloride 0.9% 50 ML IVPB SCH (09:30)
[2022-11-07] MEDS: Pantoprazole 40 MG VIAL IVP SCH (10:03)
[2022-11-07] MEDS ORDERED: Warfarin Sodium 0.5 MG HALF.TAB PO SCH (17:00)
[2022-11-07] MEDS: Scopolamine 1.5 mg/72 hour Patch TOP SCH (17:34)
[2022-11-07] MEDS: Folic Acid 1 MG TAB PO SCH (20:22)
[2022-11-07] MEDS: pyridOXINE 50 MG (B6) TAB PO SCH (20:22)
[2022-11-07] MEDS: Cyanocobalamin (Vitamin B-12) 1,000 MCG TAB PO SCH (20:22)
[2022-11-07] MEDS: traZODone HCl 50 MG TAB PO SCH (20:22)
[2022-11-07] MEDS: Gabapentin 300 MG CAP PO SCH (20:22)
[2022-11-07 20:50] VITALS: TEMP 98.1
== END 2022-11-08 00:16 | disposition expired ==
LOC: ERS 03:33 → ERHOLD 04:55 → 2NO 14:54 → CCU 11-05 00:03
PROVIDERS: ADMIT Internal Medicine; ATTEND Emergency Medicine
PROC: 3E033XZ Introduction of Vasopressor into Peripheral Vein, Percutaneous Approach (ICD-10-PCS; 2022-11-04)
PROC: 0BH17EZ Insertion of Endotracheal Airway into Trachea, Via Natural or Artificial Opening (ICD-10-PCS; principal; 2022-11-05)
PROC: 4A033R1 Measurement of Arterial Saturation, Peripheral, Percutaneous Approach (ICD-10-PCS; 2022-11-05)
PROC: 30233J1 Transfusion of Nonautologous Serum Albumin into Peripheral Vein, Percutaneous Approach (ICD-10-PCS; 2022-11-05)
PROC: 5A1945Z Respiratory Ventilation, 24-96 Consecutive Hours (ICD-10-PCS; 2022-11-05)
DX: I50.23 Acute on chronic systolic (congestive) heart failure (principal); I21.A1 Myocardial infarction type 2; G93.41 Metabolic encephalopathy; J96.01 Acute respiratory failure with hypoxia; N17.9 Acute kidney failure, unspecified; E87.1 Hypo-osmolality and hyponatremia; E87.0 Hyperosmolality and hypernatremia; D68.4 Acquired coagulation factor deficiency; I42.8 Other cardiomyopathies; I25.10 Atherosclerotic heart disease of native coronary artery without angina pectoris; Z66 Do not resuscitate; R57.0 Cardiogenic shock; Z51.5 Encounter for palliative care; G20 Parkinson's disease; E03.9 Hypothyroidism, unspecified; K21.9 Gastro-esophageal reflux disease without esophagitis; E80.6 Other disorders of bilirubin metabolism; D63.1 Anemia in chronic kidney disease; D69.6 Thrombocytopenia, unspecified; N18.30 Chronic kidney disease, stage 3 unspecified; I48.0 Paroxysmal atrial fibrillation; R13.12 Dysphagia, oropharyngeal phase; E87.6 Hypokalemia; D50.9 Iron deficiency anemia, unspecified; F32.A Depression, unspecified; R62.7 Adult failure to thrive; K72.90 Hepatic failure, unspecified without coma; Z88.6 Allergy status to analgesic agent; Z68.26 Body mass index [BMI] 26.0-26.9, adult; Z79.890 Hormone replacement therapy; Z95.810 Presence of automatic (implantable) cardiac defibrillator; Z78.1 Physical restraint status; Z79.01 Long term (current) use of anticoagulants; Z79.899 Other long term (current) drug therapy; Z98.890 Other specified postprocedural states; Z87.891 Personal history of nicotine dependence; Z82.49 Family history of ischemic heart disease and other diseases of the circulatory system; I50.84 End stage heart failure
CPT/HCPCS: 36415; 36416; 36600; 70450; 71045; 71046; 80048; 80053; 82247; 82248; 82553; 82805; 83540; 83550; 83605; 83735; 83880; 84100; 84145; 84439; 84484; 85014; 85018; 85025; 85027; 85049; 85610; 85730; 89220; 93005; 93010; 94002; 94003; 94640; 96374; C9113; J1250; J1940; J2405; J2543; J2704; J3010; J3411; J3430; J3480; J3490; J7120; J7620; P9047